=== PATIENT | male | born 1980 | race Caucasian/White ===

== ENCOUNTER 2016-05-30 06:25 | Day surgery (SDC) | payer OTHER ==
[2016-05-28 16:06] VITALS: BMI 31.0
[~2016-05-30 06:25] MED LIST: HEPARIN SODIUM,PORCINE 5,000 UNIT/ML 1 ML VIAL SQ ONE; ceFAZolin 2 GM in SODIUM CHLORIDE 0.9% 100 ML IVPB ONE
[2016-05-30] MEDS ORDERED: MIDAZOLAM 2 MG/2 ML VIAL IV PRN (06:37)
[2016-05-30] MEDS ORDERED: DEXAMETHASONE SOD PHOSPHATE 10 MG/ML 1 ML VIAL IV ONE (06:37)
[2016-05-30] MEDS ORDERED: SCOPOLAMINE 1.5MG/72HR PATCH TRANSDERM ONE (06:37)
[2016-05-30] MEDS ORDERED: ONDANSETRON 4 MG/2 ML VIAL IVP ONE (06:37)
[2016-05-30] MEDS ORDERED: LACTATED RINGERS 1,000 ML IV SCH (06:37)
[2016-05-30] MEDS ORDERED: LIDOCAINE 1% 20 ML VIAL (10MG/ML) FOR IV START INTRADERMA ONE (06:53)
--- NOTE | 2016-05-30 07:44 | P.GSHP ---
History of Present Illness H&P Date: 05/30/16 Chief Complaint: Right upper quadrant pain This is a 36-year-old male referred from Dr. Glenis Dumont. Patient rents today for laparoscopic cholecystectomy. Patient had complaints of her quadrant pain. His recent HIDA scan shows decreased ejection fraction consistent with biliary dyskinesia and chronic cholecystitis Past Medical History Past Medical History: Thyroid Disorder Additional Past Medical History / Comment(s): slight hiatal hernia, graves disease History of Any Multi-Drug Resistant Organisms: MRSA Date of last positivie culture/infection: 07/2011 MDRO Source:: LEFT KNEE Past Surgical History: Appendectomy, Orthopedic Surgery Additional Past Surgical History / Comment(s): left knee surgery, rt shoulder rotator cuff, nasal surgery Past Anesthesia/Blood Transfusion Reactions: Previous Problems w/ Anesthesia Additional Past Anesthesia/Blood Transfusion Reaction / Comment(s): HAD A REACTION TO SUCCINYCHOLINE POST OP NASAL SX FOR BROKEN NOSE THAT "BODY DID NOT PROCESS IT AND WAS ON BREATHING MACHINE FOR SEVERAL HOURS AFTERWARD" Past Psychological History: No Psychological Hx Reported Smoking Status: Former smoker Past Alcohol Use History: None Reported Additional Past Alcohol Use History / Comment(s): quit smoking 2007. smoked for 10 yrs, 1PPD Past Drug Use History: None Reported - Past Family History Mother Family Medical History: No Reported History Medications and Allergies Home Medications Medication Instructions Recorded Confirmed Type Hydrocodone/Acetaminophen [[place] 1 tab PO DIRECTED PRN 03/21/14 05/30/16 History 5-325] Methimazole [Tapazole] 2.5 mg PO DAILY 04/23/16 05/30/16 History Omeprazole 20 mg PO DAILY 05/28/16 05/30/16 History Vitamin B Complex 1 each PO DAILY 05/28/16 05/30/16 History Allergies Allergy/AdvReac Type Severity Reaction Status Date / Time succinylcholine Allergy Anaphylaxis Verified 05/28/16 15:58 Surgical - Exam Vital Signs Temp Pulse Resp BP Pulse Ox 97.9 F 68 16 128/78 97 05/30/16 07:05 05/30/16 07:05 05/30/16 07:05 05/30/16 07:05 05/30/16 07:05 - General well developed, no distress - Eyes PERRL - ENT normal pinna - Neck no masses - Respiratory normal expansion - Cardiovascular Rhythm: regular - Abdomen Abdomen: soft, non tender Assessment and Plan Plan: Chronic cholecystitis Biliary dyskinesia We will perform laparoscopic cholecystectomy
[2016-05-30] MEDS ORDERED: MIDAZOLAM 2 MG/2 ML VIAL ONE (07:50)
[2016-05-30] MEDS ORDERED: KETOROLAC 30 MG/ML 1 ML VIAL ONE (07:50)
[2016-05-30] MEDS ORDERED: NEOSTIGMINE 1 MG/ML 10 ML VIAL ONE (07:50)
[2016-05-30] MEDS ORDERED: GLYCOPYRROLATE 0.2 MG/ML 2 ML VIAL ONE (07:50)
[2016-05-30] MEDS ORDERED: LIDOCAINE 1% INJ 10MG/ML (20 ML MDV) ONE (07:50)
[2016-05-30] MEDS ORDERED: ROCURONIUM BROMIDE 10 MG/ML 10 ML VIAL IV ONE (07:50)
[2016-05-30] MEDS ORDERED: HYDROmorphone (PF) 1 MG/ML ONE (07:50)
[2016-05-30] MEDS ORDERED: fentaNYL (PF) 50 MCG/ML 2 ML AMP ONE (07:50)
[2016-05-30] MEDS ORDERED: PROPOFOL 10 MG/ML 20 ML VIAL IV ONE (07:50)
[2016-05-30] MEDS ORDERED: BUPIVACAIN-EPI 0.25%-1:200,000 30 ML VIAL IJ ONE (08:08)
[2016-05-30] MEDS ORDERED: LACTATED RINGERS 1,000 ML IV ONE (08:21)
--- NOTE | 2016-05-30 08:27 | P.OP ---
Date of Procedure: 05/30/16 Preoperative Diagnosis: Cholecystitis Postoperative Diagnosis: Cholecystitis Procedure(s) Performed: Laparoscopic cholecystectomy Anesthesia: RUFINO Surgeon: Mikey Dunne Estimated Blood Loss (ml): 5 Pathology: other (Gallbladder) Condition: stable Disposition: PACU Description of Procedure: The patient was placed on the operating table. The patient received a general endotracheal tube anesthesia. The patients abdomen was prepped and draped in the usual sterile fashion. Through an infraumbilical stab incision, the fascia of the anterior abdominal wall was grasped with a pair of Kochers and then the Veress needle was placed in the peritoneal cavity. Position of the Veress needle was confirmed with positive drop test. The abdomen was then insufflated. After adequate insufflation, the 10 mm trocar was placed in the peritoneal cavity. Following this the laparoscope was placed in the peritoneal cavity. The patient was placed in the head-up, right side up position and then a 5 mm trocar was placed in the right lateral and right subcostal position under direct visualization. A 8 mm trocar was placed in the epigastric position. The gallbladder was grasped in the fundus and infundibulum. Traction on the gallbladder was placed in the lateral and the cephalad positions. The triangle of Calot was visualized.. The cystic duct was bluntly dissected until the union of the cystic duct and common bile duct was seen. The cystic duct was then divided and sealed with the Harmonic scissors. A PDS Endoloop was then placed throughout the cystic duct stump. The cystic artery divided and sealed with the Harmonic scissors. The gallbladder was then removed from the liver bed using Harmonic scissors. The gallbladder was then extracted through the epigastric port site. Operative field was checked for any bleeding spots and Harmonic scissors was used to coagulate the liver bed. The abdomen was irrigated. The trocars were removed. The skin was closed using interrupted 3-0 Vicryl suture. Dermabond dressing were applied. The patient tolerated the procedure well.
[2016-05-30 08:43] VITALS: TEMP 97.2
[2016-05-30] MEDS: HYDROmorphone 1 MG/ML 1 ML SYRINGE IVP PRN ×5 (09:00→09:30)
[2016-05-30 09:52] VITALS: RESP 16
[2016-05-30 10:18] VITALS: PULSE 80
[2016-05-30 10:19] VITALS: BP 118/83
[2016-05-30] MEDS ORDERED: HYDROcodone/APAP 7.5-325MG 1 EACH TAB PO ONE (10:25)
== END 2016-05-30 10:54 | disposition home or self-care (01) ==
LOC: OR 06:25
PROVIDERS: ATTEND Surgery
DX: K81.1 Chronic cholecystitis (principal); E05.00 Thyrotoxicosis with diffuse goiter without thyrotoxic crisis or storm; K21.9 Gastro-esophageal reflux disease without esophagitis; Z87.891 Personal history of nicotine dependence; Z79.1 Long term (current) use of non-steroidal anti-inflammatories (NSAID); Z79.899 Other long term (current) drug therapy; Z88.8 Allergy status to other drugs, medicaments and biological substances
CPT/HCPCS: 88304; 47562; J2250; J1100; J2405; J2001; J1644; J3010; J2710; J0690; J1885; J1170; J2704

== ENCOUNTER → 2017-05-12 | Outpatient (CLI) | payer OTHER ==
--- NOTE | 2017-05-12 10:13 | CT ---
EXAMINATION TYPE: CT sinus wo con DATE OF EXAM: 05/12/2017 COMPARISON: NONE HISTORY: Chronic sinusitis CT DLP: 679 mGycm CONTRAST: None The paranasal sinuses are examined in the axial plane at 2 mm thick sections. Reconstructed images i n the coronal plane were obtained. There is an air-fluid level within the bilateral maxillary sinuses. Correlate for acute maxillary sin usitis. The ethmoid air cells are clear. The sphenoid sinuses are clear. The frontal sinuses are clear. Ri ght frontal sinus is aplastic. The septum is evaluated. There is septal deviation to the left. The ostiomeatal units are partially but incompletely obstructed. IMPRESSIONS: 1. Clinical correlation recommended for acute bilateral maxillary sinusitis.
== END | disposition home or self-care (01) ==
LOC: RADCTMAIN 08:35
PROVIDERS: ATTEND Otolaryngology
DX: J32.9 Chronic sinusitis, unspecified (principal)
CPT/HCPCS: 70486

== ENCOUNTER → 2019-12-05 | Outpatient (CLI) | payer OTHER ==
--- NOTE | 2019-12-06 06:07 | CT ---
EXAMINATION TYPE: CT brain wo con DATE OF EXAM: 12/05/2019 COMPARISON: HISTORY: Pt c/o headache x6 days, originating above RT eye, traveling back to neck. CT DLP: 1126.5 mGycm. Automated Exposure Control for Dose Reduction was Utilized. TECHNIQUE: CT scan of the head is performed without contrast. FINDINGS: There is no acute intracranial hemorrhage, mass effect, or midline shift identified. The ventricles and sulci are within normal limits in size. Mckenzie-white matter differentiation is maintai domitila. The globes are intact and the visualized sinuses are clear. IMPRESSION: No acute intracranial hemorrhage or midline shift is seen.
== END | disposition home or self-care (01) ==
LOC: RADCTMAIN 11:02
PROVIDERS: ATTEND Family Medicine
DX: R51 Headache (principal)
CPT/HCPCS: 70450

== ENCOUNTER → 2020-02-16 | Outpatient (CLI) | payer OTHER ==
--- NOTE | 2020-02-16 09:34 | MR ---
EXAMINATION TYPE: MR knee LT wo con DATE OF EXAM: 02/16/2020 COMPARISON: X-ray 01/24/2020 HISTORY: L knee pain TECHNIQUE: Multiplanar, multisequence imaging of the left knee is performed without IV contrast. FINDINGS: Anterior cruciate and posterior cruciate ligaments are intact. Medial collateral and lateral collater al ligament. There is a 1.5 x 1.5 x 3.5 cm popliteal fossa cyst. No significant marrow edema or contusion. Joint spaces are preserved. No erosive changes. Lateral meniscus intact. There is peripheral signal within the posterior horn of the medial meniscus. There is fibrillation of the patellar cartilage. Patellar and quadriceps tendons intact. No sizable f luid within the suprapatellar bursa. IMPRESSION: 1. No evidence of ligamentous tear. Peripheral signal within the posterior horn of the medial meniscu s may be related to myxoid degeneration. Subtle tear not entirely excluded. 2. Popliteal fossa cyst measuring 1.5 x 1.5 x 3.5 cm 3. Fibrillation and chondromalacia patellar cartilage
== END | disposition home or self-care (01) ==
LOC: RADMRIMAIN 08:04
PROVIDERS: ATTEND Orthopaedic Surgery
DX: M22.42 Chondromalacia patellae, left knee (principal)

== ENCOUNTER → 2020-03-05 | Outpatient (CLI) | payer OTHER | END | disposition home or self-care (01) | LOC: LABWHC1 11:37 | PROVIDERS: ATTEND Family Medicine | DX: Z20.828 Contact with and (suspected) exposure to other viral communicable diseases (principal) | CPT/HCPCS: U0003; C9803 ==

== ENCOUNTER → 2020-04-06 | Outpatient (CLI) | payer OTHER ==
[2020-04-06 15:46] LABS: Basophils # (A) 0.1 k/uL (0-0.2); Basophils % (A) 1 %; Eosinophils # (A) 0.2 k/uL (0-0.7); Eosinophils % (A) 3 %; HCT 44.1 % (39.0-53.0); Lymphocytes # (A) 4.1 k/uL (1.0-4.8); Lymphocytes % (A) 53 %; MCH 29.9 pg (25.0-35.0); MCHC 33.9 g/dL (31.0-37.0); MCV 88.4 fL (80.0-100.0); Mean Platelet Volume 6.7; Monocytes # (A) 0.5 k/uL (0-1.0); Monocytes % (A) 6 %; Neutrophils # (A) 2.8 k/uL (1.3-7.7); Neutrophils % (A) 35 %; Platelet Count 275 k/uL (150-450); RBC 4.99 m/uL (4.30-5.90); RDW 11.8 % (11.5-15.5); WBC 7.8 k/uL (3.8-10.6)
[2020-04-06 16:05] LABS: Potassium 3.7 mmol/L (3.5-5.1)
== END | disposition home or self-care (01) ==
LOC: LABPAT 15:12
PROVIDERS: ATTEND Orthopaedic Surgery
DX: Z01.818 Encounter for other preprocedural examination (principal); M23.92 Unspecified internal derangement of left knee
CPT/HCPCS: 36415; 80051; 85025

== ENCOUNTER 2020-04-19 11:50 | Day surgery (SDC) | payer OTHER ==
[2020-04-16 12:09] VITALS: BMI 31.7
--- NOTE | 2020-04-18 18:49 | HP ---
HISTORY AND PHYSICAL REASON FOR ADMISSION: Surgery scheduled for 04/19/2020 HISTORY OF PRESENT ILLNESS: Jasvir Rodriguez is a 39-year-old gentleman seen with progressive left knee pain. We discussed options for treatment. He elected to proceed with arthroscopy. Consent was obtained. PAST MEDICAL HISTORY: Hypothyroidism. PAST SURGICAL HISTORY: Left knee surgery. MEDICATIONS: Synthroid. ALLERGIES: SUCCINYLCHOLINE. SOCIAL HISTORY: He denies current tobacco use. PHYSICAL EXAMINATION: Evaluation of the left knee: Range of motion 0-130. There is a mild to moderate effusion. Tenderness medial joint line. Positive medial Kadeem's. Ligaments stable. Hip rotation without pain. Distal neurovascular exam intact. RADIOGRAPHS: Left knee radiographs revealed mild osteoarthritis. Left knee MRI: Medial meniscal tear and Gonsalez cyst. IMPRESSION: 1. Internal derangement left knee with medial meniscal tear. 2. Hypothyroidism. PLAN: Left knee arthroscopy with partial meniscectomy, partial synovectomy and debridement. Surgery is 04/19/2020. MMODL / IJN: [id number] /
[~2020-04-19 11:50] MED LIST changes: +DEXAMETHASONE SOD PHOSPHATE 4 MG/ML 1 ML VIAL IV ONE; -HEPARIN SODIUM,PORCINE 5,000 UNIT/ML 1 ML VIAL SQ ONE; +HYDROmorphone 0.5 MG/0.5 ML SYRINGE IVP PRN; +LACTATED RINGERS 1,000 ML IV SCH; +MIDAZOLAM 2 MG/2 ML VIAL IV PRN; +ONDANSETRON 4 MG/2 ML VIAL IVP ONE; +SCOPOLAMINE 1.5MG/72HR PATCH TRANSDERM ONE; -ceFAZolin 2 GM in SODIUM CHLORIDE 0.9% 100 ML IVPB ONE
[2020-04-19] MEDS ORDERED: NEOSTIGMINE 1 MG/ML 10 ML VIAL ONE (13:58)
[2020-04-19] MEDS ORDERED: GLYCOPYRROLATE 0.2 MG/ML 2 ML VIAL ONE (13:58)
[2020-04-19] MEDS ORDERED: fentaNYL (PF) 50 MCG/ML 2 ML AMP ONE (13:58)
[2020-04-19] MEDS ORDERED: PROPOFOL 10 MG/ML 20 ML VIAL IV ONE (13:58)
[2020-04-19] MEDS ORDERED: ROCURONIUM 10 MG/ML (10 ML VIAL) IV ONE (13:58)
[2020-04-19] MEDS ORDERED: MIDAZOLAM 2 MG/2 ML VIAL ONE (13:58)
[2020-04-19] MEDS ORDERED: LIDOCAINE 1% INJ 10MG/ML (20 ML MDV) ONE (13:58)
[2020-04-19] MEDS ORDERED: BUPIVACAINE (PF) 0.25% 30 ML VIAL SQ ONE ×2 (14:17→14:29)
--- NOTE | 2020-04-19 14:47 | P.OP ---
Date of Procedure: 04/19/20 Preoperative Diagnosis: Internal derangement left knee Postoperative Diagnosis: 1. Tear medial meniscus left knee 2. Grade 2 chondromalacia medial femoral condyle left knee 3. Reactive synovitis medial, lateral and suprapatellar compartments left knee Procedure(s) Performed: 1. Arthroscopic partial medial meniscectomy left knee 2. Arthroscopic chondroplasty medial femoral condyle left knee 3. Arthroscopic partial synovectomy medial, lateral and suprapatellar compartments left knee Anesthesia: CYRUSA, local Surgeon: Alex Arellano Estimated Blood Loss (ml): 8 Pathology: none sent Condition: stable Disposition: PACU Indications for Procedure: 39-year-old gentleman seen with progressive left knee pain. After treatment options were discussed, he elected to proceed with arthroscopy. Operative Findings: see description of procedure Description of Procedure: Patient was taken to the operative suite. Patient underwent a general anesthetic by the department of anesthesia. Patient was given preoperative antibiotics. The left lower extremity was placed in a well-padded arthroscopic leg kasper. The left leg was prepped and draped in the normal sterile orthopedic fashion. A lateral parapatellar and suprapatellar incision was made. Trochars were inserted. Arthroscopy was initiated. Suprapatellar pouch revealed diffuse thick reactive synovitis. The patellofemoral joint appeared to articulate congruently. There was grade 1 chondromalacia of the patella with no osteochondral tears present. The scope was guided into the medial gutter. No loose bodies or plica were identified. The scope was then guided into the medial compartment. A medial parapatellar incision was made. Trocar inserted followed by probe. There was a radial tear posterior horn medial meniscus. There were grade 2 chondral malacia changes of the medial femoral condyle with some osteochondral flap tears present. There was thick reactive synovitis anteriorly. I performed a partial medial meniscectomy getting down to stable meniscal tissue. I performed a chondroplasty medial femoral condyle getting down to stable tissue. I performed a partial synovectomy decompressing the reactive synovitis. The residual meniscus was stable. There was good decompression of the reactive synovitis. The residual osteochondral surface was stable. Scope and probe were then guided into the intercondylar notch. Cruciates were identified, probed and found to be stable. The scope and probe were then guided into lateral compartment. Lateral meniscus was probed and found to be stable. There was no significant chondromalacia. There was some reactive synovitis anteriorly. I performed a partial synovectomy decompressing the reactive synovitis. Shaver was removed. There was good decompression of the synovitis. The scope was in guided back into the suprapatellar compartment. Introduced a shaver into the superpatellar compartment. I debrided some piecemeal fragments of meniscus I encountered. I performed a partial syn ovectomy. Shaver was removed. There was good decompression of the synovitis. I took one more look on the entire knee, no residual debris. Instruments were now removed from the joint. The joint was infiltrated with .25% Marcaine. Steri-Strips were applied to the portal sites. Sterile dressings were applied. The patient was placed into a CARTER hose. No tourniquet was utilized. The patient was awakened, transferred to a bed and taken to recovery stable satisfactory condition.
[2020-04-19] MEDS ORDERED: HYDROmorphone 0.5 MG/0.5 ML SYRINGE IVP ONE ×3 (14:55→15:17)
[2020-04-19] MEDS ORDERED: KETOROLAC 15 MG/ML 1 ML VIAL IVP ONE (14:58)
[2020-04-19] MEDS ORDERED: LACTATED RINGERS 1,000 ML IV ONE (15:00)
[2020-04-19 15:02] VITALS: TEMP 97
[2020-04-19 17:20] VITALS: BP 134/74; PULSE 99; RESP 20
== END 2020-04-19 17:23 | disposition home or self-care (01) ==
LOC: OR 11:50
PROVIDERS: ATTEND Orthopaedic Surgery
DX: M23.222 Derangement of posterior horn of medial meniscus due to old tear or injury, left knee (principal); M94.262 Chondromalacia, left knee; M65.862 Other synovitis and tenosynovitis, left lower leg; M17.12 Unilateral primary osteoarthritis, left knee; M22.42 Chondromalacia patellae, left knee; E03.9 Hypothyroidism, unspecified; E05.00 Thyrotoxicosis with diffuse goiter without thyrotoxic crisis or storm; K75.9 Inflammatory liver disease, unspecified; K21.9 Gastro-esophageal reflux disease without esophagitis; E88.09 Other disorders of plasma-protein metabolism, not elsewhere classified; Z98.890 Other specified postprocedural states; Z79.890 Hormone replacement therapy; Z88.8 Allergy status to other drugs, medicaments and biological substances; Z79.899 Other long term (current) drug therapy
CPT/HCPCS: 29881; J2250; J1100; J2710; J0690; J2405; J2001; J3010; J1885; J2704; J1170

== ENCOUNTER → 2020-07-23 | Outpatient (CLI) | payer OTHER | END | disposition home or self-care (01) | LOC: LABWHC1 16:17 | PROVIDERS: ATTEND Family Medicine | DX: Z20.822 Contact with and (suspected) exposure to COVID-19 (principal) | CPT/HCPCS: U0003; U0005 ==

== ENCOUNTER 2020-07-28 09:44 | Emergency (ER) | payer OTHER ==
--- NOTE | 2020-07-28 10:50 | XR ---
EXAMINATION TYPE: XR chest 1V DATE OF EXAM: 07/28/2020 COMPARISON: 08/24/2011 HISTORY: Chest pain and shortness of breath TECHNIQUE: The lungs are clear consolidative, interstitial masslike opacity. There is no pleural effusion, pleural thickening or vasculature, mediastinum are normal. The osseous structures and soft tissues are unremarkable. IMPRESSION: No acute cardiopulmonary disease.
--- NOTE | 2020-07-28 11:09 | ED ---
General Adult HPI - General Chief complaint: Chest Pain Stated complaint: Chest Discomfort Time Seen by Provider: 07/28/20 10:01 Source: patient Mode of arrival: ambulatory Limitations: no limitations - History of Present Illness Initial comments: 40-year-old male patient presents to the emergency department today for evaluation of chest pain or shortness of breath. Patient states he was diagnosed with coated on 07/18/2020. States that he had cough, fever, nausea. States that most symptoms have resolved however he has persistent chest discomfort and shortness of breath. He has a history of Graves' disease denies any chronic lung conditions. States he has been taking [id number] vitamins and cold relief medications. He denies any sputum production or hemoptysis. Denies extremity swelling. Patient denies any recent rash, abdominal pain, nausea, vomiting, diarrhea, constipation, back pain, numbness, tingling, dizziness, weakness, hematuria, dysuria, urinary urgency, urinary frequency, headache, visual changes, or any other complaints. - Related Data Home Medications Medication Instructions Recorded Confirmed Ascorbic Acid [Vitamin C] 1,000 mg PO DAILY 07/28/20 07/28/20 Cholecalciferol [Vitamin D3 (25 25 mcg PO DAILY 07/28/20 07/28/20 Mcg = 1000 Iu)] Dm/Acetaminophen/Doxylamine [Vicks 30 ml PO Q6H PRN 07/28/20 07/28/20 Nyquil Cold-Flu Liquid] Hydrocodone/Acetaminophen [[place] 1 tab PO QID PRN 07/28/20 07/28/20 7.5-325] Levofloxacin [Levaquin] 500 mg PO DAILY 07/28/20 07/28/20 Levothyroxine Sodium [Synthroid] 25 mcg PO DAILY 07/28/20 07/28/20 Naproxen Sodium/Pseudoephedrin 1 tab PO Q12HR PRN 07/28/20 07/28/20 [Aleve-D Sinus & Cold Caplet] Phenylephrine/Dm/Acetaminop/GG 30 ml PO Q6H PRN 07/28/20 07/28/20 [Vicks Dayquil Severe Cold-Flu] Selenium 100 mcg PO DAILY 07/28/20 07/28/20 Previous Rx's Medication Instructions Recorded predniSONE 50 mg PO DAILY #5 tablet 07/28/20 Allergies Allergy/AdvReac Type Severity Reaction Status Date / Time succinylcholine Allergy Anaphylaxis Verified 07/28/20 09:58 Review of Systems ROS Statement: Those systems with pertinent positive or pertinent negative responses have been documented in the HPI. ROS Other: All systems not noted in ROS Statement are negative. Past Medical History Past Medical History: Thyroid Disorder Additional Past Medical History / Comment(s): slight hiatal hernia, graves disease History of Any Multi-Drug Resistant Organisms: MRSA Date of last positivie culture/infection: 07/2011 MDRO Source:: LEFT KNEE Past Surgical History: Appendectomy, Cholecystectomy, Orthopedic Surgery Additional Past Surgical History / Comment(s): left knee surgery, rt shoulder rotator cuff, nasal surgery Past Anesthesia/Blood Transfusion Reactions: Previous Problems w/ Anesthesia Additional Past Anesthesia/Blood Transfusion Reaction / Comment(s): HAD A REACTION TO SUCCINYCHOLINE POST OP NASAL SX FOR BROKEN NOSE THAT "BODY DID NOT PROCESS IT AND WAS ON BREATHING MACHINE FOR SEVERAL HOURS AFTERWARD" Past Psychological History: No Psychological Hx Reported Smoking Status: Never smoker Past Alcohol Use History: None Reported Past Drug Use History: None Reported - Past Family History Mother Family Medical History: No Reported History General Exam Limitations: no limitations General appearance: alert, in no apparent distress, other (This is a well developed, well nourished, adult male patient in no acute distress. Vital signs upon presentation are temperature 98.3, pulse 86, resp 18, BP 124/81, Pulse ox 98% on room air ) Eye exam: Present: normal appearance, PERRL, EOMI. Absent: scleral icterus, conjunctival injection, periorbital swelling ENT exam: Present: normal exam, normal oropharynx, mucous membranes moist, TM's normal bilaterally Neck exam: Present: normal inspection. Absent: tenderness, meningismus, lym phadenopathy Respiratory exam: Present: normal lung sounds bilaterally. Absent: respiratory distress, wheezes, rales, rhonchi, stridor Cardiovascular Exam: Present: regular rate, normal rhythm, normal heart sounds. Absent: systolic murmur, diastolic murmur, rubs, gallop, clicks GI/Abdominal exam: Present: soft, normal bowel sounds. Absent: distended, tenderness, guarding, rebound, rigid Neurological exam: Present: alert, oriented X3, CN II-XII intact Psychiatric exam: Present: normal affect, normal mood Skin exam: Present: warm, dry, intact, normal color. Absent: rash Course Vital Signs 07/28/20 09:54 Temperature 98.3 F Pulse Rate 86 Respiratory 18 Rate Blood Pressure 124/81 O2 Sat by Pulse 98 Oximetry EKG Findings - EKG Comments: EKG Findings:: EKG obtained at 1007 shows normal sinus rhythm with a ventricular rate of 78, MI interval 182, QRS duration 84, QT 382, QTc 435. No evidence of ST elevation or depression. Medical Decision Making - Medical Decision Making 40-year-old male patient presented to the emergency department today for evaluation of chest pain and shortness of breath. Diagnosed with COVID-19 about 10 days ago. Physical examination is unremarkable, lungs are clear to auscultation with good air movement. Vital signs are within normal ranges, oxygen saturation between 9899%. EKG showed sinus rhythm with no changes. Chest x-ray was obtained was negative. Did start prednisone. He'll be discharged to follow-up with his primary care physician for recheck in 1-2 days. Return parameters were discussed in detail. Case discussed with my attending Dr. Sotelo. - Radiology Data Radiology results: report reviewed, image reviewed 1V chest xray was obtained. Report was reviewed in its entirety. Impression by Dr. Gutierrez shows no acute cardio pulmonary disease. Disposition Clinical Impression: COVID-19 Disposition: HOME SELF-CARE Condition: Good Instructions (If sedation given, give patient instructions): Coronavirus Disease 2019 (COVID-19), Chest Pain (ED) Additional Instructions: Take medications as directed. Follow-up with your primary care physician for recheck in 1-2 days. Return to the emergency department for any new, worsening, or concerning symptoms. Prescriptions: predniSONE 50 mg PO DAILY #5 tablet Is patient prescribed a controlled substance at d/c from ED?: No Referrals: Lobo Dumont MD [Primary Care Provider] - 1-2 days Time of Disposition: 11:15
[2020-07-28] MEDS ORDERED: predniSONE 50 MG TAB PO STA (11:14)
[2020-07-28 11:26] VITALS: BP 128/78; PULSE 68; RESP 16; TEMP 98
== END 2020-07-28 11:25 | disposition home or self-care (01) ==
LOC: EC 09:44
DX: U07.1 COVID-19 (principal); R50.9 Fever, unspecified; R11.0 Nausea; R07.89 Other chest pain; E05.00 Thyrotoxicosis with diffuse goiter without thyrotoxic crisis or storm; Z79.899 Other long term (current) drug therapy; Z79.891 Long term (current) use of opiate analgesic; Z79.890 Hormone replacement therapy; Z79.1 Long term (current) use of non-steroidal anti-inflammatories (NSAID); Z79.52 Long term (current) use of systemic steroids; Z88.2 Allergy status to sulfonamides; Z90.49 Acquired absence of other specified parts of digestive tract; Z86.14 Personal history of Methicillin resistant Staphylococcus aureus infection
CPT/HCPCS: 93005; 71045; J7512; 99285

== ENCOUNTER 2020-10-19 08:51 | Inpatient (IN) | payer OTHER ==
[2020-10-19] MEDS ORDERED: KETOROLAC 15 MG/ML 1 ML VIAL IVP STA (09:18)
--- NOTE | 2020-10-19 09:49 | ED ---
Lower Extremity Injury HPI - General Chief Complaint: Extremity Injury, Lower Stated Complaint: R calf pain Time Seen by Provider: 10/19/20 08:58 Source: patient, RN notes reviewed Mode of arrival: ambulatory Limitations: no limitations - History of Present Illness Initial Comments: This a 40-year-old male presents emergency Department with chief complaint of right calf pain. Patient states this started as she went off work has worsened. He states his leg is swollen. He states he's also had a fever at home, feeling flushed out felt well. Patient's had some urinary frequency increased thirst. Patient states that it's he did have cold in July. Patient states he has no cough congestion shortness of breath no chest pain no abdominal complaints. No history DVT or PE - Related Data Home Medications Medication Instructions Recorded Confirmed Hydrocodone/Acetaminophen [[place] 1 tab PO QID PRN 07/28/20 10/19/20 7.5-325] Levothyroxine Sodium [Synthroid] 50 mcg PO DAILY 10/19/20 10/19/20 Allergies Allergy/AdvReac Type Severity Reaction Status Date / Time succinylcholine Allergy Anaphylaxis Verified 10/19/20 11:12 Review of Systems ROS Statement: Those systems with pertinent positive or pertinent negative responses have been documented in the HPI. ROS Other: All systems not noted in ROS Statement are negative. Past Medical History Past Medical History: Thyroid Disorder Additional Past Medical History / Comment(s): slight hiatal hernia, graves disease History of Any Multi-Drug Resistant Organisms: MRSA Date of last positivie culture/infection: 07/2011 MDRO Source:: LEFT KNEE Past Surgical History: Appendectomy, Cholecystectomy, Orthopedic Surgery Additional Past Surgical History / Comment(s): left knee surgery, rt shoulder rotator cuff, nasal surgery Past Anesthesia/Blood Transfusion Reactions: Previous Problems w/ Anesthesia Additional Past Anesthesia/Blood Transfusion Reaction / Comment(s): HAD A REACTION TO SUCCINYCHOLINE POST OP NASAL SX FOR BROKEN NOSE THAT "BODY DID NOT PROCESS IT AND WAS ON BREATHING MACHINE FOR SEVERAL HOURS AFTERWARD" Past Psychological History: No Psychological Hx Reported Smoking Status: Never smoker Past Alcohol Use History: None Reported Past Drug Use History: None Reported - Past Family History Mother Family Medical History: No Reported History General Exam Limitations: no limitations General appearance: alert, in no apparent distress Head exam: Present: atraumatic, normocephalic, normal inspection Neck exam: Present: normal inspection. Absent: tenderness, meningismus, lymphadenopathy Respiratory exam: Present: normal lung sounds bilaterally. Absent: respiratory distress, wheezes, rales, rhonchi, stridor Cardiovascular Exam: Present: regular rate, normal rhythm, normal heart sounds. Absent: systolic murmur, diastolic murmur, rubs, gallop, clicks GI/Abdominal exam: Present: soft, normal bowel sounds. Absent: distended, tenderness, guarding, rebound, rigid Extremities exam: Present: other (Right calf is swollen, tender no erythema pulses are palpable there is noted tinea pedis of the right foot) Back exam: Absent: CVA tenderness (R), CVA tenderness (L) Skin exam: Present: warm, dry, intact, normal color. Absent: rash Course Vital Signs 10/19/20 10/19/20 10/19/20 08:51 09:46 10:55 Temperature 98.4 F 100.0 F H 99 F Pulse Rate 106 H 101 H 98 Respiratory 18 20 16 Rate Blood Pressure 121/79 121/89 131/87 O2 Sat by Pulse 95 96 95 Oximetry 10/19/20 12:46 Temperature Pulse Rate 95 Respiratory 18 Rate Blood Pressure 125/80 O2 Sat by Pulse 97 Oximetry Medical Decision Making - Lab Data Result diagrams: 10/19/20 09:44 10/19/20 09:44 Lab Results 10/19/20 10/19/20 10/19/20 Range/Units 09:44 09:44 09:44 WBC 14.5 H (3.8-10.6) k/uL RBC 4.68 (4.30-5.90) m/uL Hgb 14.2 (13.0-17.5) gm/dL Hct 41.0 (39.0-53.0) % MCV 87.6 (80.0-100.0) fL MCH 30.3 (25.0-35.0) pg MCHC 34.7 (31.0-37.0) g/dL RDW 12.0 (11.5-15.5) % Plt Count 237 (150-450) k/uL MPV 7.0 Neutrophils % 78 % Lymphocytes % 16 % Monocytes % 4 % Eosinophils % 0 % Basophils % 0 % Neutrophils # 11.3 H (1.3-7.7) k/uL Lymphocytes # 2.3 (1.0-4.8) k/uL Monocytes # 0.6 (0-1.0) k/uL Eosinophils # 0.0 (0-0.7) k/uL Basophils # 0.1 (0-0.2) k/uL Sodium 140 (137-145) mmol/L Potassium 3.8 (3.5-5.1) mmol/L Chloride 104 (98-107) mmol/L Carbon Dioxide 29 (22-30) mmol/L Anion Gap 7 mmol/L BUN 14 (9-20) mg/dL Creatinine 0.99 (0.66-1.25) mg/dL Est GFR (CKD-EPI)AfAm >90 (>60 ml/min/1.73 sqM) Est GFR (CKD-EPI)NonAf >90 (>60 ml/min/1.73 sqM) Glucose 100 H (74-99) mg/dL Plasma Lactic Acid Jan 1.3 (0.7-2.0) mmol/L Calcium 9.4 (8.4-10.2) mg/dL Total Bilirubin 1.0 (0.2-1.3) mg/dL AST 27 (17-59) U/L ALT 30 (4-49) U/L Alkaline Phosphatase 69 (38-126) U/L Total Protein 7.3 (6.3-8.2) g/dL Albumin 4.5 (3.5-5.0) g/dL Urine Color Urine Appearance (Clear) Urine pH (5.0-8.0) Ur Specific [place] (1.001-1.035) Urine Protein (Negative) Urine Glucose (UA) (Negative) Urine Ketones (Negative) Urine Blood (Negative) Urine Nitrite (Negative) Urine Bilirubin (Negative) Urine Urobilinogen (<2.0) mg/dL Ur Leukocyte Esterase (Negative) 10/19/20 Range/Units 09:46 WBC (3.8-10.6) k/uL RBC (4.30-5.90) m/uL Hgb (13.0-17.5) gm/dL Hct (39.0-53.0) % MCV (80.0-100.0) fL MCH (25.0-35.0) pg MCHC (31.0-37.0) g/dL RDW (11.5-15.5) % Plt Count (150-450) k/uL MPV Neutrophils % % Lymphocytes % % Monocytes % % Eosinophils % % Basophils % % Neutrophils # (1.3-7.7) k/uL Lymphocytes # (1.0-4.8) k/uL Monocytes # (0-1.0) k/uL Eosinophils # (0-0.7) k/uL Basophils # (0-0.2) k/uL Sodium (137-145) mmol/L Potassium (3.5-5.1) mmol/L Chloride (98-107) mmol/L Carbon Dioxide (22-30) mmol/L Anion Gap mmol/L BUN (9-20) mg/dL Creatinine (0.66-1.25) mg/dL Est GFR (CKD-EPI)AfAm (>60 ml/min/1.73 sqM) Est GFR (CKD-EPI)NonAf (>60 ml/min/1.73 sqM) Glucose (74-99) mg/dL Plasma Lactic Acid Jan (0.7-2.0) mmol/L Calcium (8.4-10.2) mg/dL Total Bilirubin (0.2-1.3) mg/dL AST (17-59) U/L ALT (4-49) U/L Alkaline Phosphatase (38-126) U/L Total Protein (6.3-8.2) g/dL Albumin (3.5-5.0) g/dL Urine Color Light Yellow Urine Appearance Clear (Clear) Urine pH 6.5 (5.0-8.0) Ur Specific [place] 1.013 (1.001-1.035) Urine Protein Negative (Negative) Urine Glucose (UA) Negative (Negative) Urine Ketones Negative (Negative) Urine Blood Negative (Negative) Urine Nitrite Negative (Negative) Urine Bilirubin Negative (Negative) Urine Urobilinogen <2.0 (<2.0) mg/dL Ur Leukocyte Esterase Negative (Negative) Disposition Clinical Impression: Right leg pain, Myositis, Fever Disposition: ADMITTED IP TO THIS [facility] Referrals: Lobo Dumont MD [Primary Care Provider] - 1-2 days
[2020-10-19 10:00] LABS: Basophils # (A) 0.1 k/uL (0-0.2); Basophils % (A) 0 %; Eosinophils % (A) 0 %; HGB 14.2 gm/dL (13.0-17.5); Lymphocytes # (A) 2.3 k/uL (1.0-4.8); Lymphocytes % (A) 16 %; MCH 30.3 pg (25.0-35.0); MCHC 34.7 g/dL (31.0-37.0); MCV 87.6 fL (80.0-100.0); Monocytes # (A) 0.6 k/uL (0-1.0); Monocytes % (A) 4 %; Neutrophils # (A) 11.3 k/uL (1.3-7.7); Neutrophils % (A) 78 %; Platelet Count 237 k/uL (150-450); RBC 4.68 m/uL (4.30-5.90); WBC 14.5 k/uL (3.8-10.6)
[2020-10-19 10:01] LABS: Appearance,Urine Clear (Clear); Bilirubin,Urine Negative (Negative); Blood,Urine Negative (Negative); Color,Urine Light Yellow; Glucose,Urine (UA) Negative (Negative); Ketones,Urine Negative (Negative); Leukocyte Esterase,Urine Negative (Negative); Nitrite,Urine Negative (Negative); PH, Urine 6.5 (5.0-8.0); Protein,Urine Negative (Negative); Specific Gravity,Urine 1.013 (1.001-1.035); Urobilinogen,Urine <2.0 mg/dL (<2.0)
[2020-10-19 10:12] LABS: Potassium 3.8 mmol/L (3.5-5.1)
[2020-10-19 10:14] LABS: ALT 30 U/L (4-49); AST 27 U/L (17-59); African American GFR (CKD) >90 (>60 ml/min/1.73 sqM); Albumin 4.5 g/dL (3.5-5.0); Alkaline Phosphatase 69 U/L (38-126); Anion Gap 7 mmol/L; Blood Urea Nitrogen 14 mg/dL (9-20); Calcium 9.4 mg/dL (8.4-10.2); Carbon Dioxide 29 mmol/L (22-30); Chloride 104 mmol/L (98-107); Glucose 100 mg/dL (74-99); Non-African American GFR(CKD) >90 (>60 ml/min/1.73 sqM); Sodium 140 mmol/L (137-145); Total Protein 7.3 g/dL (6.3-8.2)
--- NOTE | 2020-10-19 11:26 | US ---
EXAMINATION TYPE: US venous doppler duplex LE RT DATE OF EXAM: 10/19/2020 10:09 AM COMPARISON: Bilateral US 12/30/2013. CLINICAL HISTORY: pain. pain in calf SIDE PERFORMED: Right TECHNIQUE: The lower extremity deep venous system is examined utilizing real time linear array sonog sylvia with graded compression, doppler sonography and color-flow sonography. VESSELS IMAGED: Common Femoral Vein Deep Femoral Vein Greater Saphenous Vein * Femoral Vein Popliteal Vein Small Saphenous Vein * Proximal Calf Veins (* superficial vessels) Right Leg: Negative for DVT Grayscale, color doppler, spectral doppler imaging performed of the deep veins of the right lower ext remity. There is normal flow, compressibility, vascular waveforms. IMPRESSION: No ultrasound evidence for acute DVT in the right lower extremity.
--- NOTE | 2020-10-19 11:38 | XR ---
EXAMINATION TYPE: XR chest 2V DATE OF EXAM: 10/19/2020 COMPARISON: Prior exam 07/28/2020 HISTORY: Fever, Covid positive, headache and swelling TECHNIQUE: Frontal and lateral views of the chest are obtained. FINDINGS: There is no focal air space opacity, pleural effusion, or pneumothorax seen. The cardiac silhouette size is within normal limits. The osseous structures are intact. IMPRESSION: No acute cardiopulmonary process.
--- NOTE | 2020-10-19 12:14 | XR ---
Right leg HISTORY: Pain and swelling Frontal and lateral views of the right leg submitted Enthesophyte present at the insertion of the Achilles tendon. There is arthropathy tibiotalar joint, marginal spurring and subchondral eburnation, cyst formation. Small ossific densities present at the level the medial malleolus appear well-corticated and not felt likely to be chronic. Soft tissue swel ling is noted incidentally. IMPRESSION: Osteoarthritic changes of the left ankle, there may be underlying osteochondral defect, l oose bodies versus avulsion injuries, ankle MRI may be of benefit. Correlate for edema or cellulitis within the right leg.
[2020-10-19] MEDS ORDERED: AMPICILLIN-SULBACTAM 3 GM in SODIUM CHLORIDE 0.9% 100 ML IVPB STA (12:52)
[2020-10-19] MEDS ORDERED: NALOXONE 0.4 MG/ML 1 ML VIAL IV PRN (12:53)
[2020-10-19] MEDS ORDERED: ONDANSETRON 4 MG/2 ML VIAL IVP PRN (12:53)
--- NOTE | 2020-10-19 15:45 | P.CNOR ---
History of Present Illness - [facility] Consult date: 10/19/20 Consult reason: other (Right calf pain) History of present illness: Patient is a 40-year-old male who presented to [facility] emergency room today with regards to pain and swelling of his right calf. Patient states he woke up yesterday afternoon with some discomfort in the right calf. 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 Patient works at a [employer] and is on his feet quite a bit. Patient denies any recent trauma, this including falls. He denies any skin scrapes or changes to the skin involving the right lower extremity. He does have a history of a left knee arthroscopy with Dr. Arellano in April 2020, the knee has been doing very well with no acute changes. Patient states he has felt a little sick the last few days, he was running a low-grade fever at home. He also states that he's been urinating slightly more than normal, he states he is also been drinking more fluid he feels she's been slightly dehydrated. Today in the ER, patient was evaluated at bedside, he is resting comfortably. His family with him at bedside. He notes most of discomfort in the posterior aspect of the right calf. He denies any foot or ankle, knee, hip pain. He denies any left lower extremity discomfort. He denies any cervical, thoracic or lumbar pain. He denies any loss of bowel or bladder function. Review of Systems Constitutional: Reports as per HPI Past Medical History Past Medical History: Thyroid Disorder Additional Past Medical History / Comment(s): slight hiatal hernia, graves disease History of Any Multi-Drug Resistant Organisms: MRSA Year Discovered:: 07/2011 MDRO Source:: LEFT KNEE Past Surgical History: Appendectomy, Cholecystectomy, Orthopedic Surgery Additional Past Surgical History / Comment(s): left knee surgery, rt shoulder rotator cuff, nasal surgery Past Anesthesia/Blood Transfusion Reactions: Previous Problems w/ Anesthesia Additional Past Anesthesia/Blood Transfusion Reaction / Comm: HAD A REACTION TO SUCCINYCHOLINE POST OP NASAL SX FOR BROKEN NOSE THAT "BODY DID NOT PROCESS IT AND WAS ON BREATHING MACHINE FOR SEVERAL HOURS AFTERWARD" Past Psychological History: No Psychological Hx Reported Smoking Status: Never smoker Past Alcohol Use History: None Reported Past Drug Use History: None Reported - Past Family History Mother Family Medical History: No Reported History Medications and Allergies Home Medications Medication Instructions Recorded Confirmed Type Hydrocodone/Acetaminophen [[place] 1 tab PO QID PRN 07/28/20 10/19/20 History 7.5-325] Levothyroxine Sodium [Synthroid] 50 mcg PO DAILY 10/19/20 10/19/20 History Allergies Allergy/AdvReac Type Severity Reaction Status Date / Time succinylcholine Allergy Anaphylaxis Verified 10/19/20 11:12 Physical Examination Right lower extremity: No obvious open skin lesions or sores are present throughout the extremity. Th ere is no obvious erythema. There is no obvious fluctuance appreciated especially surrounding the calf There is significant tenderness with palpation involving the posterior calf and the medial and lateral borders. The compartments are soft and compressible. There is no effusion present around the knee, there is no joint line tenderness with palpation Patient can fully extend the knee and flex past 90 and no pain Logroll maneuver of the leg reproduces no groin pain, hip flexion along with int ernal and external rotation reproduces no pain Homans test was difficult to assess due to the discomfort reproduced with range of motion of the foot and ankle Plantar flexion, dorsiflexion, EHL, FHL are intact Dorsalis pedis pulses 2+ Sensory exam to light touch throughout the extremity is intact Results - Labs Labs: Abnormal Lab Results - Last 24 Hours (Table) 10/19/20 10/19/20 10/19/20 Range/Units 09:44 09:44 13:20 WBC 14.5 H (3.8-10.6) k/uL Neutrophils # 11.3 H (1.3-7.7) k/uL Glucose 100 H (74-99) mg/dL Coronavirus (PCR) Detected A (Not Detectd) H & H 10/19/20 Range/Units 09:44 Hgb 14.2 (13.0-17.5) gm/dL Hct 41.0 (39.0-53.0) % Result Diagrams: 10/19/20 09:44 10/19/20 09:44 Assessment and Plan Assessment: Right calf pain Right calf swelling Positive Mitchell virus test Leukocytosis Plan: I was able to discuss the case, this to include physical exam findings and imaging studies maintaining Dr. Prather. No current clinical evidence of soft tissue infection or abscess. No orthopedic surgical intervention recommended at this time. Recommend icing and elevating of the right lower extremity. Weight-bear as tolerated Taking into consideration the patient's positive covid test, this may explain the leukocytosis Would recommend vascular consult for further evaluation and recommendations Other biomedical engineering internship and recommendations We will be available for any further questions regarding this patient Time with Patient: Less than 30
[2020-10-19 16:49] LABS: C Reactive Protein 5.7 mg/dL (<1.0)
[2020-10-19] MEDS: HYDROmorphone 0.5 MG/0.5 ML SYRINGE IVP PRN (19:32)
[2020-10-19] MEDS: AMPICILLIN-SULBACTAM 3 GM in SODIUM CHLORIDE 0.9% 100 ML IVPB SCH (21:17)
[2020-10-20] MEDS: HYDROmorphone 0.5 MG/0.5 ML SYRINGE IVP PRN ×5 (00:13→21:29)
[2020-10-20] MEDS: AMPICILLIN-SULBACTAM 3 GM in SODIUM CHLORIDE 0.9% 100 ML IVPB SCH ×2 (05:30→13:45)
[2020-10-20] MEDS: ACETAMINOPHEN TAB 325 MG TAB PO PRN ×3 (05:30→16:58)
--- NOTE | 2020-10-20 14:25 | P.HPIM ---
History of Present Illness 40-year-old male came in with recent onset of right calf pain started couple days ago woke up from sleep found to have swelling and severe pain in the right calf. Patient the is admitted for myositis. Patient was evaluated by arthritic surgery patient had several imaging studies including Doppler of the right lower extremity which did not show any significant abnormality or DVT patient does have fever. Patient is presently on Toradol and Unasyn. Patient denied any injury patient does have history of Graves' disease. Denied any family history of polymyositis or dermatomyositis patient denied any rash. Patient had a tibia and fibular x-ray which showed osteoarthritis of the right ankle. Patient Covid 19 PCR is positive. Patient was diagnosed with Covid 19 couple months ago and patient still has some nonviable RNA viral fragments. I do not have any CK available at this time which will be obtained. Patient may end up needing muscle biopsy vascular surgery will be consulted. Review of Systems REVIEW OF SYSTEMS: CONSTITUTIONAL: No fever, no malaise, no fatigue. HEENT: No recent visual problems or hearing problems. Denied any sore throat. CARDIOVASCULAR: No chest pain, orthopnea, PND, no palpitations, no syncope. PULMONARY: No shortness of breath, no cough, no hemoptysis. GASTROINTESTINAL: No diarrhea, no nausea, no vomiting, no abdominal pain. NEUROLOGICAL: No headaches, no weakness, no numbness. HEMATOLOGICAL: Denies any bleeding or petechiae. GENITOURINARY: Denies any burning micturition, frequency, or urgency. MUSCULOSKELETAL/RHEUMATOLOGICAL: As mentioned in HPI ENDOCRINE: Denies any polyuria or polydipsia. The rest of the 14-point review of systems is negative. Past Medical History Past Medical History: Thyroid Disorder Additional Past Medical History / Comment(s): slight hiatal hernia, graves disease History of Any Multi-Drug Resistant Organisms: MRSA Date of last positivie culture/infection: 07/2011 MDRO Source:: LEFT KNEE Past Surgical History: Appendectomy, Cholecystectomy, Orthopedic Surgery Additional Past Surgical History / Comment(s): 2 left knee surgery, rt shoulder rotator cuff, nasal surgery Past Anesthesia/Blood Transfusion Reactions: Previous Problems w/ Anesthesia Additional Past Anesthesia/Blood Transfusion Reaction / Comment(s): HAD A REACTION TO SUCCINYCHOLINE POST OP NASAL SX FOR BROKEN NOSE THAT "BODY DID NOT PROCESS IT AND WAS ON BREATHING MACHINE FOR SEVERAL HOURS AFTERWARD" Past Psychological History: No Psychological Hx Reported Smoking Status: Former smoker Past Alcohol Use History: None Reported Additional Past Alcohol Use History / Comment(s): quit smoking 2007. smoked for 10 yrs, 1PPD Past Drug Use History: None Reported - Past Family History Mother Family Medical History: No Reported History Medications and Allergies Home Medications Medication Instructions Recorded Confirmed Type Hydrocodone/Acetaminophen [[place] 1 tab PO QID PRN 07/28/20 10/19/20 History 7.5-325] Levothyroxine Sodium [Synthroid] 50 mcg PO DAILY 10/19/20 10/19/20 History Allergies Allergy/AdvReac Type Severity Reaction Status Date / Time succinylcholine Allergy Anaphylaxis Verified 10/19/20 11:12 Physical Exam Vitals: Vital Signs Temp Pulse Pulse Resp BP BP Pulse Ox 10/20/20 10:40 100.4 F H 99 18 113/73 94 L 10/20/20 08:00 99 18 10/20/20 05:42 101.5 F H 109 H 18 125/78 94 L 10/20/20 00:17 99.9 F H 103 H 22 121/74 93 L 10/19/20 20:00 22 10/19/20 18:36 100.0 F H 103 H 18 127/78 94 L 10/19/20 16:00 84 18 120/74 95 Intake and Output 10/19/20 10/20/20 10/20/20 22:59 06:59 14:59 Intake Total 200 Output Total 400 Balance -200 Intake: Intake, IV Titration 200 Amount Ampicillin-Sulbactam 3 gm 100 In Sodium Chloride 0.9% 100 ml @ 200 mls/hr IVPB ONCE [facility] Rx#:[id number] Ampicillin-Sulbactam 3 gm 100 In Sodium Chloride 0.9% 100 ml @ 200 mls/hr IVPB Q8H [facility] Rx#:[id number] Output: Urine 400 Other: Voiding Method Toilet Toilet Weight 97.522 kg PHYSICAL EXAMINATION: GENERAL: The patient is alert and oriented x3, not in any acute distress. Well developed, well nourished. HEENT: Pupils are round and equally reacting to light. EOMI. No scleral icterus. No conjunctival pallor. Normocephalic, atraumatic. No pharyngeal erythema. No thyromegaly. CARDIOVASCULAR: S1 and S2 present. No murmurs, rubs, or gallops. PULMONARY: Chest is clear to auscultation, no wheezing or crackles. ABDOMEN: Soft, nontender, nondistended, normoactive bowel sounds. No palpable organomegaly. MUSCULOSKELETAL: She has significant swelling in the right the calf tender to touch without any significant redness of skin. EXTREMITIES: No cyanosis, clubbing, or pedal edema. NEUROLOGICAL: Gross neurological examination did not reveal any focal deficits. SKIN: Mild redness secondary to myositis Results CBC & Chem 7: 10/19/20 09:44 10/19/20 09:44 Labs: Abnormal Lab Results - Last 24 Hours (Table) 10/19/20 Range/Units 09:44 Creatine Kinase 172 H (55-170) U/L C-Reactive Protein 5.7 H (<1.0) mg/dL Assessment and Plan Plan: -Severe myositis: Patient will be evaluated for infectious, inflammatory and autoimmune causes patient may end up needing muscle biopsy. Vascular surgery will be consulted for that we'll obtain a CPK level. We'll also obtain TSH -Covid 19 PCR positivity: Secondary to his recent Covid 19 infection patient doesn't appear to have active infection at this time. -Hypothyroidism, history of Graves' disease will obtain TSH continue with levothyroxine. Patient had history of radiation for Graves' disease -DVT prophylaxis Lovenox
[2020-10-20] MEDS: CLINDAMYCIN 900 MG in DEXTROSE 5% IN WATER 50 ML IVPB SCH ×2 (18:22)
--- NOTE | 2020-10-20 19:17 | CT ---
EXAMINATION TYPE: CT lower extremity RT w con DATE OF EXAM: 10/20/2020 COMPARISON: None HISTORY: Right sided pain and redness to calf. CT DLP: 205.7 mGycm Automated exposure control for dose reduction was used. CONTRAST: Performed with IV Contrast, patient injected with 100 mL of Isovue 300. Images were obtained from the distal femoral metaphysis to the bottom of the calcaneus with IV contra st. There is some mild subcutaneous edema over the posterior lower leg. There is fluid measuring up to 7 mm in thickness. I see no intramuscular fluid collection. The tibia and fibula appear intact. I see n o bony destructive process. There is no evidence of a fracture. Knee joint appears intact. There is n o significant knee joint effusion. Ankle mortise is anatomic. The talus is intact. I see no pathologi c enhancement. There is arterial flow seen in the popliteal artery and peroneal artery and the tibial artery trifurcation. There is arterial flow in the dorsalis pedis artery and the posterior tibial ar crow at the ankle. IMPRESSION: Subcutaneous edema and fluid over the posterior mid calf. This could relate to cellulitis. No evidenc e of arterial significant occlusive disease.
--- NOTE | 2020-10-20 20:38 | CONS ---
CONSULTATION DATE OF SERVICE: 10/20/2020 REASON FOR CONSULTATION: Right lower extremity cellulitis, question myositis. HISTORY OF PRESENT ILLNESS: The patient is a 40-year-old male presented to [facility] yesterday morning for evaluation of right calf pain. The patient's symptoms started Thursday night into morning when he was done with his shift. Started having pain to the right calf area, described the pain to be sharp in nature, almost 10/10 intensity. Initially, not as bad about 5 to 6/10. The patient's symptoms continued to get worse. He did go to work that evening. However, had to leave work early and presented to [facility] yesterday morning for evaluation of the right calf pain which is gaining in severity, describing to be almost 10 out of 10, throbbing in nature and worse with walking on it. The patient did notice he had associated swelling and redness of the right leg. He did develop athlete's foot prior to that to the right 4th toe web. With these symptoms, the patient was evaluated by the ER physician. On arrival to the ER, the patient did have a fever of initially afebrile, the temperature 98.4, subsequently spiked a fever of 101.5 degrees this morning. The patient did have white count 14.5 with left shift. Creatinine was 0.99. Urine is negative. Mitchell PCR came back positive. Chest x-ray was negative. The patient did have lower extremity Doppler that was negative for DVT. The patient treated with Unasyn and Infectious disease was consulted today for management of antibiotic therapy concerning for myositis/cellulitis. REVIEW OF SYSTEM: Positive points have been mentioned in HPI. Rest of systems are negative. PAST MEDICAL HISTORY: Hypothyroidism, hiatal hernia, Grave's disease, previous history of left knee MRSA infection. PAST SURGICAL HISTORY: Appendectomy, cholecystectomy, left knee surgery, right rotator cuff repair SOCIAL HISTORY: The patient denies smoking, drinking or drug use. FAMILY HISTORY: No pertinent findings noticed. ALLERGIES: TO SUCCINYLCHOLINE. MEDICATIONS: The patient is currently on Tylenol, Unasyn 3 grams q.6 hours, Lovenox, Dilaudid, Toradol, Synthroid, Narcan, Zofran. PHYSICAL EXAMINATION: Blood pressure is 115/77, pulse of 103, temperature is 100, T-max 101.5. He is 95% on room air. General description: The patient is a middle-aged male lying in bed in no distress. No tachypnea or accessory muscles of respiration use. HEENT: Examination shows no pallor or scleral icterus. Oral mucous membranes dry. NECK: Trachea central. No thyromegaly. LUNGS unlabored breathing. Clear to auscultation anteriorly with no wheeze or crackles. HEART S1, S2. Regular rate and rhythm. ABDOMEN: Soft, no tenderness. No guarding. No rigidity. Right lower extremity swollen, red especially the calf area. Slightly warm and tender to touch. No fluctuation induration or any drainage. Right foot 4th toe web did have evidence of athlete's foot. NEUROLOGICAL: Patient is awake, alert, oriented times three. Mood and affect normal. LABS: Hemoglobin is 14.1, white count 14.5. BUN of 14, creatinine 0.99. Electrolytes have been normal. Urine is negative. Chest x-ray was negative. Lower extremity Doppler was negative for DVT. DIAGNOSTIC IMPRESSION AND PLAN: Patient with admission to the hospital with sepsis, source is right lower extremity cellulitis, likely streptococcal disease in this patient who did have evidence of athlete's foot. Clinical suspicion low for underlying myositis or necrotizing infection. PLAN: 1. We will obtain a CT of the right leg to make sure no evidence of any deep infection, or an abscess. 2. Discontinue Unasyn. 3. Start the patient on cefazolin, Clinda combination. 4. Branden the circumference of the right leg and should be measured every few hours to make sure no evidence of any worsening swelling to the right leg. This was explained to the patient's nurse. 5. Nystatin cream in between the toes. 6. We will follow on his clinical condition and investigations to further adjust medication if needed. Thank you for this consultation. We will follow this patient along with you. The patient has multiple questions. Those were answered. MMODL / IJN: [id number] / LAKESHA
[2020-10-20] MEDS: NYSTATIN 100,000UNIT/GM CREAM 30 GM TUBE TOPICAL SCH (21:33)
[2020-10-21] MEDS: HYDROmorphone 0.5 MG/0.5 ML SYRINGE IVP PRN ×4 (00:35→19:31)
[2020-10-21] MEDS: KETOROLAC 15 MG/ML 1 ML VIAL IVP PRN ×2 (01:28→23:55)
[2020-10-21] MEDS: CLINDAMYCIN 900 MG in DEXTROSE 5% IN WATER 50 ML IVPB SCH ×6 (01:28→16:55)
[2020-10-21] MEDS: LEVOTHYROXINE 50 MCG TAB PO SCH (06:05)
[2020-10-21] MEDS: ACETAMINOPHEN TAB 325 MG TAB PO PRN ×3 (06:05→18:14)
[2020-10-21] MEDS: ENOXAPARIN 40 MG/0.4 ML SYRINGE SQ SCH (07:21)
--- NOTE | 2020-10-21 10:36 | P.PN ---
Subjective 40-year-old male came in with recent onset of right calf pain started couple days ago woke up from sleep found to have swelling and severe pain in the right calf. Patient the is admitted for myositis. Patient was evaluated by arthritic surgery patient had several imaging studies including Doppler of the right lower extremity which did not show any significant abnormality or DVT patient does have fever. Patient is presently on Toradol and Unasyn. Patient denied any injury patient does have history of Graves' disease. Denied any family history of polymyositis or dermatomyositis patient denied any rash. Patient had a tibia and fibular x-ray which showed osteoarthritis of the right ankle. Patient Covid 19 PCR is positive. Patient was diagnosed with Covid 19 couple months ago and patient still has some nonviable RNA viral fragments. 10/21/2020 Patient was a evaluated by infectious disease patient does have fungal infection in between fourth and fifth fingers which is probably a nidus of infection patient probably has streptococcal infection. Patient is presently on cefazolin and also on clindamycin. Patient still had fevers. Constitutional: Denied any fatigue denied any fever. Cardio vascular: denied any chest pain, palpitations Gastrointestinal denied any nausea vomiting Pulmonary: Denied any shortness of breath cough Neurologic denied any new focal deficits All inpatient medications were reviewed and appropriate changes in these medications as dictated in the interval history and assessment and plan. Objective - Vital Signs Vital signs: Vital Signs Temp 99.1 F 10/21/20 10:05 Pulse 90 10/21/20 10:05 Resp 18 10/21/20 10:05 BP 112/78 10/21/20 10:05 Pulse Ox 96 10/21/20 10:05 Intake & Output 10/20/20 10/21/20 10/21/20 18:59 06:59 18:59 Intake Total 1190 Output Total 950 Balance 240 Intake: Intake, IV Titration 150 Amount Ampicillin-Sulbactam 3 gm 100 In Sodium Chloride 0.9% 100 ml @ 200 mls/hr IVPB Q8H [facility] Rx#:[id number] ceFAZolin 2 gm In Sodium 50 Chloride 0.9% 50 ml @ 100 mls/hr IVPB Q8HR [facility] Rx# :[id number] Oral 1040 Output: Urine 950 Other: Voiding Method Toilet Toilet Toilet # Voids 2 - Exam PHYSICAL EXAMINATION: GENERAL: The patient is alert and oriented x3, not in any acute distress. Well developed, well nourished. HEENT: Pupils are round and equally reacting to light. EOMI. No scleral icterus. No conjunctival pallor. Normocephalic, atraumatic. No pharyngeal erythema. No thyromegaly. CARDIOVASCULAR: S1 and S2 present. No murmurs, rubs, or gallops. PULMONARY: Chest is clear to auscultation, no wheezing or crackles. ABDOMEN: Soft, nontender, nondistended, normoactive bowel sounds. No palpable organomegaly. MUSCULOSKELETAL: She has significant swelling in the right the calf tender to touch without any significant redness of skin. EXTREMITIES: No cyanosis, clubbing, or pedal edema. NEUROLOGICAL: Gross neurological examination did not reveal any focal deficits. SKIN: Mild redness secondary to myositis, his fungal infection between fourth and fifth toes on the right side - Labs CBC & Chem 7: 10/19/20 09:44 10/19/20 09:44 Labs: Microbiology - Last 24 Hours (Table) 10/19/20 21:42 Blood Culture - Preliminary Blood No Growth after 24 hours Assessment and Plan Plan: -Severe myositis: Patient is presently on ceftezolin and clindamycin ,patient probably has a streptococcal infection. Patient has Candidal toe webs for this infection. Patient's CK is only minimally elevated yesterday. -Covid 19 PCR positivity: Secondary to his recent Covid 19 infection patient doesn't appear to have active infection at this time. -Hypothyroidism, history of Graves' disease continue with levothyroxine. Paige ent had history of radiation for Graves' disease. TSH is within normal limits -DVT prophylaxis Lovenox
[2020-10-21] MEDS: NYSTATIN 100,000UNIT/GM CREAM 30 GM TUBE TOPICAL SCH ×2 (11:46→23:54)
[2020-10-21 12:26] LABS: HCT 38.6 % (39.6-50.0); HGB 12.3 g/dL (13.0-17.0); MCH 29.9 pg (27.0-32.0); MCHC 31.9 g/dL (32.0-37.0); MCV 93.7 fL (80.0-97.0); Mean Platelet Volume 10.2 fL (9.5-12.2); Platelet Count 198 X 10*3/uL (140-440); RBC 4.12 X 10*6/uL (4.40-5.60); RDW 11.9 % (11.5-14.5); WBC 12.49 X 10*3/uL (4.50-10.00)
[2020-10-21 12:47] LABS: African American GFR (CKD) 130.4 (60.0-200.0); Anion Gap 8.5 mmol/L (4.00-12.00); BUN/Creat Ratio 17.5 Ratio (12.00-20.00); Calcium 7.8 mg/dL (8.7-10.3); Carbon Dioxide 25.5 mmol/L (21.6-31.8); Non-African American GFR(CKD) 112.5 (60.0-200.0); Potassium 4.5 mmol/L (3.5-5.5)
--- NOTE | 2020-10-21 19:30 | PN ---
PROGRESS NOTE DATE OF SERVICE: 10/21/2020 REASON FOR FOLLOWUP: Right lower extremity cellulitis and athlete's foot. INTERVAL HISTORY: Patient overall fever pattern has improved. Did have a ow grade fever of 100.2 this morning. The patient denies having any chest pain. No shortness of breath or cough. No abdominal pain. Overall pain and discomfort to the right leg has slightly decreased intensity. PHYSICAL EXAMINATION: Blood pressure 106/70 with a pulse of 83, temperature 9.2. He is 97% on room air. General description: The patient is a middle-aged male lying in bed in no distress. Respiratory system: Unlabored breathing, clear to auscultation anteriorly. Heart S1, S2. Regular rate and rhythm. Abdomen: Soft, no tenderness. The right leg swelling and redness has slightly decreased. No worsening from the line that was placed yesterday. CT was negative for any abscess. DIAGNOSTIC IMPRESSION AND PLAN: 1. Patient with acute right lower extremity cellulitis, source likely the athlete's foot. Clinically responding to cefazolin to continue for 24 hours. 2. Patient with positive Covid test in this patient who did have a history of Covid 2 months ago, more likely residual from his previous infection. Clinically not behaving as an active Covid, no need for further treatment or isolation. MMODL / IJN: [id number] /
[2020-10-22] MEDS: CLINDAMYCIN 900 MG in DEXTROSE 5% IN WATER 50 ML IVPB SCH ×8 (01:11→23:49)
[2020-10-22] MEDS: ACETAMINOPHEN TAB 325 MG TAB PO PRN (06:31)
[2020-10-22] MEDS: LEVOTHYROXINE 50 MCG TAB PO SCH (06:32)
--- NOTE | 2020-10-22 08:05 | P.PN ---
Subjective Principal diagnosis: The patient essentially admitted for right Cellulitis The patient states he is unable to completely bear weight. However fever is broken no voiding difficulties. Objective - Vital Signs Vital signs: Vital Signs Temp 98.6 F 10/22/20 07:12 Pulse 85 10/22/20 07:12 Resp 17 10/22/20 07:12 BP 136/77 10/22/20 07:12 Pulse Ox 98 10/22/20 07:12 Intake & Output 10/21/20 10/22/20 10/22/20 18:59 06:59 18:59 Intake Total 730 Balance 730 Intake: Intake, IV Titration 150 Amount Clindamycin 900 mg In 50 Dextrose 5% in Water 50 ml @ 50 mls/hr IVPB Q8HR [facility] Rx#:[id number] ceFAZolin 2 gm In Sodium 100 Chloride 0.9% 50 ml @ 100 mls/hr IVPB Q8HR [facility] Rx# :[id number] Oral 580 Other: Voiding Method Toilet Toilet # Voids 2 - Constitutional General appearance: Present: average body habitus - EENT Eyes: Absent: abnormal pupil - Neck Neck: Absent: lymphadenopathy - Respiratory Respiratory: bilateral: CTA - Cardiovascular Rhythm: regular Heart sounds: normal: S1, S2 Abnormal Heart Sounds: Absent: S3 Gallop - Gastrointestinal General gastrointestinal: Present: soft. Absent: tenderness - Integumentary Integumentary Comment(s): Significant right calf cellulitis with edema Integumentary: Present: cellulitis - Neurologic Neurologic: Present: CNII-XII intact - Labs CBC & Chem 7: 10/21/20 06:17 10/21/20 06:17 Labs: Abnormal Lab Results - Last 24 Hours (Table) 10/21/20 10/21/20 Range/Units 06:17 06:17 WBC 12.49 H (4.50-10.00) X 10*3/uL RBC 4.12 L (4.40-5.60) X 10*6/uL Hgb 12.3 L (13.0-17.0) g/dL Hct 38.6 L (39.6-50.0) % MCHC 31.9 L (32.0-37.0) g/dL Calcium 7.8 L (8.7-10.3) mg/dL Microbiology - Last 24 Hours (Table) 10/19/20 21:42 Blood Culture - Preliminary Blood No Growth after 48 hours Assessment and Plan (1) Fever Current Visit: Yes Status: Acute Code(s): R50.9 - FEVER, UNSPECIFIED SNOMED Code(s): 265686619 (2) Myositis Current Visit: Yes Status: Acute Code(s): M60.9 - MYOSITIS, UNSPECIFIED SNOMED Code(s): 15481961 (3) Right leg pain Current Visit: Yes Status: Acute Code(s): M79.604 - PAIN IN RIGHT LEG SNOMED Code(s): 042540635 Plan: Continue current regimen of antibiotic treatment. Check CBC in a.m.
[2020-10-22] MEDS: ENOXAPARIN 40 MG/0.4 ML SYRINGE SQ SCH (08:47)
[2020-10-22] MEDS: NYSTATIN 100,000UNIT/GM CREAM 30 GM TUBE TOPICAL SCH ×2 (08:48→21:17)
[2020-10-22 09:46] LABS: Basophils % (A) 0 %; Eosinophils # (A) 0.1 k/uL (0-0.7); Eosinophils % (A) 1 %; HCT 39.2 % (39.0-53.0); HGB 12.7 gm/dL (13.0-17.5); Lymphocytes # (A) 1.9 k/uL (1.0-4.8); Lymphocytes % (A) 20 %; MCH 29.2 pg (25.0-35.0); MCHC 32.3 g/dL (31.0-37.0); MCV 90.4 fL (80.0-100.0); Mean Platelet Volume 7.3; Monocytes # (A) 0.5 k/uL (0-1.0); Monocytes % (A) 5 %; Neutrophils # (A) 6.7 k/uL (1.3-7.7); Neutrophils % (A) 72 %; Platelet Count 253 k/uL (150-450); RBC 4.34 m/uL (4.30-5.90); RDW 12.5 % (11.5-15.5); WBC 9.3 k/uL (3.8-10.6)
[2020-10-22] MEDS: HYDROmorphone 0.5 MG/0.5 ML SYRINGE IVP PRN ×3 (09:46→22:36)
[2020-10-22 10:20] LABS: African American GFR (CKD) >90 (>60 ml/min/1.73 sqM); Anion Gap 7 mmol/L; Blood Urea Nitrogen 12 mg/dL (9-20); Calcium 9.3 mg/dL (8.4-10.2); Carbon Dioxide 30 mmol/L (22-30); Chloride 107 mmol/L (98-107); Glucose 117 mg/dL (74-99); Non-African American GFR(CKD) >90 (>60 ml/min/1.73 sqM); Potassium 3.9 mmol/L (3.5-5.1); Sodium 144 mmol/L (137-145)
[2020-10-22 10:33] LABS: C Reactive Protein 16.8 mg/dL (<1.0)
--- NOTE | 2020-10-22 13:24 | PN ---
PROGRESS NOTE DATE OF SERVICE: 10/22/2020 REASON FOR FOLLOWUP: 1. Right lower extremity cellulitis. 2. Athlete's foot. INTERVAL HISTORY: Patient is afebrile. The patient is breathing comfortably. The patient denies having any chest pain. No shortness, no cough, no abdominal pain. Overall pain and discomfort to the right heel has decreased. Able to walk on it. PHYSICAL EXAMINATION: Blood pressure is 136/77 with a pulse of 85, temperature 98.6. He is 98% on room air. General description: The patient is a middle-aged male lying in bed in no distress. Respiratory system: Unlabored breathing, clear to auscultation anteriorly. Heart S1, S2. Regular rate and rhythm. Abdomen soft, no tenderness. Right leg swelling has slightly decreased. LABS: Hemoglobin is 12.1, white count 9.3, BUN of 12, creatinine 0.68. DIAGNOSTIC IMPRESSION AND PLAN: Patient with acute right lower extremity cellulitis with diffuse swelling and redness likely streptococcal disease, slow clinical response to continue for another 24 to 48 hours, infection before transition to oral antibiotics. Continue supportive care. MMODL / IJN: [id number] /
[2020-10-23] MEDS: LEVOTHYROXINE 50 MCG TAB PO SCH (06:15)
[2020-10-23] MEDS: HYDROmorphone 0.5 MG/0.5 ML SYRINGE IVP PRN ×2 (06:15→20:49)
[2020-10-23] MEDS: ENOXAPARIN 40 MG/0.4 ML SYRINGE SQ SCH (09:07)
[2020-10-23] MEDS: NYSTATIN 100,000UNIT/GM CREAM 30 GM TUBE TOPICAL SCH ×2 (09:08→20:51)
[2020-10-23] MEDS: ACETAMINOPHEN TAB 325 MG TAB PO PRN (09:14)
[2020-10-23] MEDS: CLINDAMYCIN 900 MG in DEXTROSE 5% IN WATER 50 ML IVPB SCH ×4 (10:28→16:43)
[2020-10-23 11:33] LABS: MCHC 32.6 g/dL (32.0-37.0); MCV 92.1 fL (80.0-97.0); Platelet Count 382 X 10*3/uL (140-440); RBC 4.67 X 10*6/uL (4.40-5.60); RDW 11.9 % (11.5-14.5); WBC 9.51 X 10*3/uL (4.50-10.00)
[2020-10-23 13:02] LABS: African American GFR (CKD) 124.3 (60.0-200.0); Albumin 4.3 g/dL (3.80-4.90); Albumin/Globulin Ratio 1.43 (1.60-3.17); Anion Gap 12.4 mmol/L (4.00-12.00); BUN/Creat Ratio 12.22 Ratio (12.00-20.00); Calcium 9.4 mg/dL (8.7-10.3); Carbon Dioxide 24.6 mmol/L (21.6-31.8); Non-African American GFR(CKD) 107.2 (60.0-200.0); Potassium 4.1 mmol/L (3.5-5.5); Total Bilirubin 0.5 mg/dL (0.3-1.2); Total Protein 7.3 g/dL (6.2-8.2)
[2020-10-23] MEDS ORDERED: HYDROcodone/APAP 7.5-325MG 1 EACH TAB PO PRN (20:21)
--- NOTE | 2020-10-23 22:48 | PN ---
PROGRESS NOTE DATE OF SERVICE: 10/23/2020 REASON FOR FOLLOWUP: Right lower extremity cellulitis. INTERVAL HISTORY: Patient is afebrile. The patient is breathing comfortably. The right leg pain and swelling have slightly decreased. Denies having any chest pain, shortness of breath, cough, no abdominal pain or diarrhea. PHYSICAL EXAMINATION: Blood pressure 107/55, pulse of 70, temperature 98.1. He is 96% on room air. General description: The patient is a middle-aged male lying in bed in no distress. Respiratory system: Unlabored breathing, clear to auscultation anteriorly. Heart S1, S2. Regular rate and rhythm. Abdomen: Soft, no tenderness. Right leg swelling and redness has improved. Still has significant amount of inflammation. LABS: Hemoglobin is 14, white count of 9.5. BUN of 11, creatinine 0.9. DIAGNOSTIC IMPRESSION AND PLAN: Patient with acute right lower extremity cellulitis, extensive with underlying significant Athlete's foot. The patient has responded to IV antibiotic. However still has significant amount of infection and concern for possible failure of oral antibiotic therapy. We will see if the patient has coverage for outpatient antibiotic. Continue with cefazolin and clindamycin at this point and reevaluate the patient tomorrow. MMODL / IJN: [id number] /
[2020-10-24] MEDS: CLINDAMYCIN 900 MG in DEXTROSE 5% IN WATER 50 ML IVPB SCH ×4 (00:07→09:20)
[2020-10-24] MEDS: LEVOTHYROXINE 50 MCG TAB PO SCH (05:51)
[2020-10-24 07:53] VITALS: RESP 17
[2020-10-24] MEDS: ENOXAPARIN 40 MG/0.4 ML SYRINGE SQ SCH (07:56)
--- NOTE | 2020-10-24 08:24 | P.PN ---
Subjective Principal diagnosis: The patient essentially admitted for right Cellulitis The patient states he is unable to completely bear weight. However fever is broken no voiding difficulties. Objective - Vital Signs Vital signs: Vital Signs Temp 98.1 F 10/24/20 07:22 Pulse 80 10/24/20 07:22 Resp 17 10/24/20 07:22 BP 126/82 10/24/20 07:22 Pulse Ox 98 10/24/20 07:22 Intake & Output 10/23/20 10/24/20 10/24/20 18:59 06:59 18:59 Other: Voiding Method Toilet Toilet # Voids 3 1 # Bowel Movements 0 - Constitutional General appearance: Present: average body habitus - EENT Eyes: Absent: abnormal pupil - Neck Neck: Absent: lymphadenopathy - Respiratory Respiratory: bilateral: CTA - Cardiovascular Rhythm: regular Heart sounds: normal: S1, S2 Abnormal Heart Sounds: Absent: S3 Gallop - Gastrointestinal General gastrointestinal: Present: soft. Absent: tenderness - Integumentary Integumentary: Present: cellulitis - Psychiatric Psychiatric: Present: A&O x's 3, appropriate affect - Labs CBC & Chem 7: 10/23/20 07:00 10/23/20 07:00 Labs: Abnormal Lab Results - Last 24 Hours (Table) 10/23/20 Range/Units 07:00 Anion Gap 12.40 H (4.00-12.00) mmol/L Albumin/Globulin Ratio 1.43 L (1.60-3.17) g/dL Microbiology - Last 24 Hours (Table) 10/19/20 21:42 Blood Culture - Preliminary Blood No Growth after 96 hours Assessment and Plan (1) Fever Current Visit: Yes Status: Acute Code(s): R50.9 - FEVER, UNSPECIFIED SNOMED Code(s): 219083583 (2) Myositis Current Visit: Yes Status: Acute Code(s): M60.9 - MYOSITIS, UNSPECIFIED SNOMED Code(s): 34331570 (3) Right leg pain Current Visit: Yes Status: Acute Code(s): M79.604 - PAIN IN RIGHT LEG SNOMED Code(s): 708835798 Plan: Continue current regimen of antibiotic treatment. Check CBC in a.m. Anticipate discharge in the next 24-40 Time with Patient: Less than 30
--- NOTE | 2020-10-24 08:27 | P.DS ---
Providers Date of admission: 10/19/20 12:52 Attending physician: Lobo Dumont Consults: 10/19/20 12:55 Consult Physician Urgent Consulting Provider: Alex Arellano Consult Reason/Comments: leg pain Do you want consulting provider notified?: Yes 10/20/20 10:20 Consult Physician Routine Consulting Provider: Sly Garcia Consult Reason/Comments: Cellutis Do you want consulting provider notified?: Yes Primary care physician: Lobo Dumont - Discharge Diagnosis(es) (1) Fever Current Visit: Yes Status: Acute (2) Myositis Current Visit: Yes Status: Acute (3) Right leg pain Current Visit: Yes Status: Acute Hospital Course: This is a discharge summary 40-year-old white male essentially admitted for right calf tenderness and mass. The patient was treated and found to have signi ficant cellulitis. Orthopedic surgery was consulted for possible fasciitis and he was started on empiric antibiotic treatment. After infectious diseases consulted, the patient was placed on appropriate IV antibiotic and responded appropriately. He will be discharged once the antibiotic protocol is elucidated Geeta oral versus IV. The patient has responded significantly and other than difficulty ambulating, the patient is afebrile the last 48 hours only discharged once cleared by consultants. Patient Condition at Discharge: Stable Plan - Discharge Summary Discharge Rx Participant: Yes New Discharge Prescriptions: New Nystatin 100,000Unit/gm Cream [Mycostatin Cream] 1 applic TOPICAL BID #60 gram Continue Hydrocodone/Acetaminophen [[place] 7.5-325] 1 tab PO QID PRN PRN Reason: Pain Levothyroxine Sodium [Synthroid] 50 mcg PO DAILY Discharge Medication List Hydrocodone/Acetaminophen [[place] 7.5-325] 1 tab PO QID PRN 07/28/20 [History] Levothyroxine Sodium [Synthroid] 50 mcg PO DAILY 10/19/20 [History] Nystatin 100,000Unit/gm Cream [Mycostatin Cream] 1 applic TOPICAL BID #60 gram 10/24/20 [Rx] Follow up Appointment(s)/Referral(s): Lobo Dumont MD [Primary Care Provider] - 3 Days Discharge Disposition: HOME SELF-CARE
[2020-10-24] MEDS: NYSTATIN 100,000UNIT/GM CREAM 30 GM TUBE TOPICAL SCH (09:22)
--- NOTE | 2020-10-24 13:21 | PN ---
PROGRESS NOTE DATE OF SERVICE: 10/24/2020 REASON FOR FOLLOWUP: Right lower extremity cellulitis. INTERVAL HISTORY: Patient is currently afebrile. The patient is feeling better. Breathing comfortably. Denies having any chest pain, shortness of breath, abdominal pain. Overall pain on the right leg has decreased. PHYSICAL EXAMINATION: VITAL SIGNS: Blood pressure 126/82, pulse of 80, temperature 98.1, he is 98% on room air. GENERAL DESCRIPTION: A middle-aged male lying in bed in no distress. RESPIRATORY SYSTEM: Unlabored breathing, clear to auscultation anteriorly. HEART: S1, S2. Regular rate and rhythm. ABDOMEN: Soft, no tenderness. EXTREMITIES: Right leg swelling and redness has improved. LABS: No new labs have been obtained today. Blood culture has been negative. DIAGNOSTIC IMPRESSION AND PLAN: Patient with right lower extremity cellulitis, extensive. Patient has shown overall improvement on clindamycin and cefazolin. He would have benefit from another day of IV antibiotic, however, the patient has been discharged by the admitting physician. Prescription for Keflex to be sent to the pharmacy and advise close outpatient followup. MMODL / IJN: [id number] /
[2020-10-24 14:38] VITALS: BP 127/89; PULSE 89; TEMP 98.2
== END 2020-10-24 15:36 | disposition home or self-care (01) | DRG 602 ==
LOC: EC 08:51 → 4SSUR 12:52
PROVIDERS: ADMIT Family Medicine; ATTEND Family Medicine
DX: L03.115 Cellulitis of right lower limb (principal); U07.1 COVID-19; E03.9 Hypothyroidism, unspecified; E86.0 Dehydration; M60.9 Myositis, unspecified; M19.071 Primary osteoarthritis, right ankle and foot; B37.2 Candidiasis of skin and nail; B35.3 Tinea pedis; Z79.890 Hormone replacement therapy; Z87.891 Personal history of nicotine dependence; E05.00 Thyrotoxicosis with diffuse goiter without thyrotoxic crisis or storm; K44.9 Diaphragmatic hernia without obstruction or gangrene
CPT/HCPCS: 36415; 71046; 80048; 80053; 81003; 82550; 83605; 84443; 85025; 85027; 86140; 87040; 87635; 96374; 99285

== ENCOUNTER → 2021-05-24 | Outpatient (CLI) | payer OTHER | END | disposition home or self-care (01) | LOC: LABWHC1 11:20 | PROVIDERS: ATTEND Family Medicine | DX: U07.1 COVID-19 (principal) | CPT/HCPCS: U0003; C9803; U0005 ==

== ENCOUNTER 2023-03-07 15:17 | Emergency (ER) | payer OTHER ==
[2023-03-07 15:29] VITALS: RESP 20; TEMP 98.5
--- NOTE | 2023-03-07 15:40 | ED ---
Fall HPI - General Chief Complaint: Fall Stated Complaint: Fall Time Seen by Provider: 03/07/23 15:33 Source: patient, RN notes reviewed, old records reviewed Mode of arrival: EMS Limitations: no limitations - History of Present Illness Initial Comments: This is a 42-year-old male presented by EMS for evaluation regarding fall and significant trauma. Patient missed a step and fell from a tree blind today he believes about 15 feet in the ER. Patient complaining of severe back pain severe pelvic pain, patient is able to move legs or extremities but states he is unable to walk is having severe pain in his pelvis area. Patient feels something feels broke. 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 arrival Fall Witnessed: no Place Fall Occurred: home Loss of Consciousness: none Prolonged Down Time?: no Symptoms Prior to Fall: none Location: pelvis, buttocks Severity: severe Severity scale (1-10): 10 Quality: sharp Context: tripped/slipped Associated Symptoms: denies - Related Data Home Medications Medication Instructions Recorded Confirmed Hydrocodone/Acetaminophen [[place] 1 tab PO Q6H PRN 07/28/20 03/07/23 7.5-325] Cyclobenzaprine [Flexeril] 10 mg PO BID PRN 03/07/23 03/07/23 Esomeprazole Magnesium [NexIUM 20 mg PO DAILY PRN 03/07/23 03/07/23 24Hr] Levothyroxine Sodium [Unithroid] 200 mcg PO DAILY 03/07/23 03/07/23 Allergies Allergy/AdvReac Type Severity Reaction Status Date / Time succinylcholine Allergy Anaphylaxis/See Verified 03/07/23 18:25 comment Review of Systems ROS Statement: Those systems with pertinent positive or pertinent negative responses have been documented in the HPI. ROS Other: All systems not noted in ROS Statement are negative. Past Medical History Past Medical History: Thyroid Disorder Additional Past Medical History / Comment(s): slight hiatal hernia, graves disease History of Any Multi-Drug Resistant Organisms: MRSA Date of last positivie culture/infection: 07/2011 MDRO Source:: LEFT KNEE Past Surgical History: Appendectomy, Cholecystectomy, Orthopedic Surgery Additional Past Surgical History / Comment(s): 2 left knee surgery, rt shoulder rotator cuff, nasal surgery Past Anesthesia/Blood Transfusion Reactions: Previous Problems w/ Anesthesia Additional Past Anesthesia/Blood Transfusion Reaction / Comment(s): HAD A REACTION TO SUCCINYCHOLINE POST OP NASAL SX FOR BROKEN NOSE THAT "BODY DID NOT PROCESS IT AND WAS ON BREATHING MACHINE FOR SEVERAL HOURS AFTERWARD" Past Psychological History: No Psychological Hx Reported Smoking Status: Former smoker Past Alcohol Use History: None Reported Past Drug Use History: None Reported - Past Family History Mother Family Medical History: No Reported History General Exam - General Exam Comments Initial Comments: GCS 15 Airways patent trachea is midline Breath sounds equal bilaterally Limitations: no limitations General appearance: alert, in no apparent distress, anxious Head exam: Present: atraumatic, normocephalic, normal inspection Eye exam: Present: normal appearance, PERRL, EOMI. Absent: scleral icterus, conjunctival injection, periorbital swelling ENT exam: Present: normal exam, mucous membranes moist Neck exam: Present: normal inspection. Absent: tenderness, meningismus, lymphadenopathy Respiratory exam: Present: normal lung sounds bilaterally. Absent: respiratory distress, wheezes, rales, rhonchi, stridor Cardiovascular Exam: Present: regular rate, normal rhythm, normal heart sounds. Absent: systolic murmur, diastolic murmur, rubs, gallop, clicks GI/Abdominal exam: Present: soft, tenderness (patient has pelvic tenderness on pressing on his abdomen), normal bowel sounds. Absent: distended, guarding, rebound, rigid Extremities exam: Present: normal inspection, full ROM, normal capillary refill. Absent: tenderness, pedal edema, joint swelling, calf tenderness Back exam: Present: normal inspection Neurological exam: Present: alert, oriented X3, CN II-XII intact Psychiatric exam: Present: normal affect, normal mood Skin exam: Present: warm, dry, intact, normal color. Absent: rash Course Vital Signs 03/07/23 03/07/23 03/07/23 15:21 15:37 19:09 Temperature 98.5 F Pulse Rate 96 96 99 Respiratory 20 20 20 Rate Blood Pressure 143/93 142/95 143/68 O2 Sat by Pulse 99 96 99 Oximetry - Reevaluation(s) Reevaluation #1: 03/07/23 17:53 Medical records reviewed Reevaluation #2: 03/07/23 16:23 Patient updated to level to primary trauma Reevaluation #3: 03/07/23 17:53 Patient family informed of results questions answered Reevaluation #4: 03/07/23 15:56 Was pt. sent in by a medical professional or institution (JOESPH Sorto, [employer], urgent care, hospital, or half-way...) When possible be specific @ -no Did you speak to anyone other than the patient for history (EMS, parent, family, police, friend...)? What history was obtained from this source @ -no Did you review nursing and triage notes (agree or disagree)? Why? @ -agree Are old charts reviewed (outside hosp., previous admission, EMS record, old EKG, old radiological studies, urgent care reports/EKG's, half-way records)? Report findings @ -yes Differential Diagnosis (chest pain, altered mental status, abdominal pain women, abdominal pain men, vaginal bleeding, weakness, fever, dyspnea, syncope, headache, dizziness, GI bleed, back pain, seizure, CVA, palpatations, mental health, musculoskeletal)? @ -prior EKG interpreted by me (3pts min.). @ -yes X-rays interpreted by me (1pt min.). @ -yes CT interpreted by me (1pt min.). @ -yes U/S interpreted by me (1pt. min.). @ -no What testing was considered but not performed or refused? (CT, X-rays, U/S, labs)? Why? @ -none What meds were considered but not given or refused? Why? @ -none Did you discuss the management of the patient with other professionals (professionals i.e. JOESPH Sorto, [employer] OPERATOR [employer], lab, RT, psych nurse, social worker aide, wheel buffer, teacher, disability liaison officer, comp field case manager)? Give summary @ -no Was smoking cessation discussed for >3mins.? @ -no Was critical care preformed (if so, how long)? @ -no Were there social determinants of health that impacted care today? How? (Homelessness, low income, unemployed, alcoholism, drug addiction, transportation, low edu. Level, literacy, decrease access to med. care, residential, rehab)? @ -none Was there de-escalation of care discussed even if they declined (Discuss DNR or withdrawal of care, Hospice)? DNR status @ -no What co-morbidities impacted this encounter? (DM, HTN, Smoking, COPD, CAD, Cancer, CVA, ARF, Chemo, Hep., AIDS, mental health diagnosis, sleep apnea, morbid obesity)? @ -none Was patient admitted / discharged? Hospital course, mention meds given and route, prescriptions, significant lab abnormalities, going to OR and other pertinent info. @ - 42-year-old male to the emergency department for evaluation of fall from significant height. Patient had a significant history of a fall from around 15/17 feet. Patient did land on his back and is unable to ambulate secondary to severe pain. Patient does have a displaced sacral fracture [facility] for orthopedic trauma evaluation Transferred to [facility] Admitted Undiagnosed new problem with uncertain prognosis? @ -no Drug Therapy requiring intensive monitoring for toxicity (Heparin, Nitro, Insulin, Cardizem)? @ -no Were any procedures done? @ -no Diagnosis/symptom? @ -Fall, sacral fracture displaced Acute, or Chronic, or Acute on Chronic? @ -Acute Uncomplicated (without systemic symptoms) or Complicated (systemic symptoms)? @ -Complicated Side effects of treatment? @ -no Exacerbation, Progression, or Severe Exacerbation? @ -exacerbation Poses a threat to life or bodily function? How? (Chest pain, USA, MS, pneumonia, PE, COPD, DKA, ARF, appy, cholecystitis, CVA, Diverticulitis, Homicidal, Suicidal, threat to staff... and all critical care pts) @ -yes significant traumatic fall - Consultations Consultation #1: Spoke with trauma surgery , orthopedic trauma, Dr. Jeff who recommends transfer, spoke with at [facility] who does accept patient for transfer Medical Decision Making - Medical Decision Making 42-year-old male to the emergency department for evaluation of fall from significant height. Patient had a significant history of a fall from around 15/17 feet. Patient did land on his back and is unable to ambulate secondary to severe pain. Patient does have a displaced sacral fracture [facility] for orthopedic trauma evaluation - Lab Data Result diagrams: 03/07/23 15:37 03/07/23 15:37 Lab Results 03/07/23 03/07/23 03/07/23 Range/Units 15:37 15:37 15:37 WBC 14.9 H (3.8-10.6) k/uL RBC 4.67 (4.30-5.90) m/uL Hgb 14.2 (13.0-17.5) gm/dL Hct 41.0 (39.0-53.0) % MCV 87.8 (80.0-100.0) fL MCH 30.4 (25.0-35.0) pg MCHC 34.6 (31.0-37.0) g/dL RDW 12.0 (11.5-15.5) % Plt Count 298 (150-450) k/uL MPV 7.2 Neutrophils % 77 % Lymphocytes % 18 % Monocytes % 4 % Eosinophils % 1 % Basophils % 0 % Neutrophils # 11.4 H (1.3-7.7) k/uL Lymphocytes # 2.7 (1.0-4.8) k/uL Monocytes # 0.6 (0-1.0) k/uL Eosinophils # 0.1 (0-0.7) k/uL Basophils # 0.0 (0-0.2) k/uL PT 11.5 (10.0-12.5) sec INR 1.1 (<1.2) APTT 23.1 (22.0-30.0) sec Sodium 138 (137-145) mmol/L Potassium 3.6 (3.5-5.1) mmol/L Chloride 103 (98-107) mmol/L Carbon Dioxide 23 (22-30) mmol/L Anion Gap 12 mmol/L BUN 14 (9-20) mg/dL Creatinine 0.87 (0.66-1.25) mg/dL Est GFR (CKD-EPI)AfAm >90 (>60 ml/min/1.73 sqM) Est GFR (CKD-EPI)NonAf >90 (>60 ml/min/1.73 sqM) Glucose 116 H (74-99) mg/dL Calcium 9.0 (8.4-10.2) mg/dL Phosphorus (2.5-4.5) mg/dL Magnesium (1.6-2.3) mg/dL Total Bilirubin 0.7 (0.2-1.3) mg/dL AST 45 (17-59) U/L ALT 51 H (4-49) U/L Alkaline Phosphatase 72 (38-126) U/L Total Protein 7.4 (6.3-8.2) g/dL Albumin 4.2 (3.5-5.0) g/dL Urine Color Urine Appearance (Clear) Urine pH (5.0-8.0) Ur Specific [place] (1.001-1.035) Urine Protein (Negative) Urine Glucose (UA) (Negative) Urine Ketones (Negative) Urine Blood (Negative) Urine Nitrite (Negative) Urine Bilirubin (Negative) Urine Urobilinogen (<2.0) mg/dL Ur Leukocyte Esterase (Negative) Urine Opiates Screen (NotDetected) Ur Oxycodone Screen (NotDetected) Urine Methadone Screen (NotDetected) Ur Propoxyphene Screen (NotDetected) Ur Barbiturates Screen (NotDetected) U Tricyclic Antidepress (NotDetected) Ur Phencyclidine Scrn (NotDetected) Ur Amphetamines Screen (NotDetected) U Methamphetamines Scrn (NotDetected) U Benzodiazepines Scrn (NotDetected) Urine Cocaine Screen (NotDetected) U Marijuana (THC) Screen (NotDetected) Serum Alcohol mg/dL Blood Type Blood Type Recheck Bld Type Recheck Status Antibody Screen Spec Expiration Date 03/07/23 03/07/23 03/07/23 Range/Units 15:52 15:55 17:29 WBC (3.8-10.6) k/uL RBC (4.30-5.90) m/uL Hgb (13.0-17.5) gm/dL Hct (39.0-53.0) % MCV (80.0-100.0) fL MCH (25.0-35.0) pg MCHC (31.0-37.0) g/dL RDW (11.5-15.5) % Plt Count (150-450) k/uL MPV Neutrophils % % Lymphocytes % % Monocytes % % Eosinophils % % Basophils % % Neutrophils # (1.3-7.7) k/uL Lymphocytes # (1.0-4.8) k/uL Monocytes # (0-1.0) k/uL Eosinophils # (0-0.7) k/uL Basophils # (0-0.2) k/uL PT (10.0-12.5) sec INR (<1.2) APTT (22.0-30.0) sec Sodium (137-145) mmol/L Potassium (3.5-5.1) mmol/L Chloride (98-107) mmol/L Carbon Dioxide (22-30) mmol/L Anion Gap mmol/L BUN (9-20) mg/dL Creatinine (0.66-1.25) mg/dL Est GFR (CKD-EPI)AfAm (>60 ml/min/1.73 sqM) Est GFR (CKD-EPI)NonAf (>60 ml/min/1.73 sqM) Glucose (74-99) mg/dL Calcium (8.4-10.2) mg/dL Phosphorus 2.0 L (2.5-4.5) mg/dL Magnesium 1.7 (1.6-2.3) mg/dL Total Bilirubin (0.2-1.3) mg/dL AST (17-59) U/L ALT (4-49) U/L Alkaline Phosphatase (38-126) U/L Total Protein (6.3-8.2) g/dL Albumin (3.5-5.0) g/dL Urine Color Colorless Urine Appearance Clear (Clear) Urine pH 6.5 (5.0-8.0) Ur Specific [place] 1.041 H (1.001-1.035) Urine Protein Negative (Negative) Urine Glucose (UA) Negative (Negative) Urine Ketones 1+ H (Negative) Urine Blood Negative (Negative) Urine Nitrite Negative (Negative) Urine Bilirubin Negative (Negative) Urine Urobilinogen <2.0 (<2.0) mg/dL Ur Leukocyte Esterase Negative (Negative) Urine Opiates Screen Detected H (NotDetected) Ur Oxycodone Screen Not Detected (NotDetected) Urine Methadone Screen Not Detected (NotDetected) Ur Propoxyphene Screen Not Detected (NotDetected) Ur Barbiturates Screen Not Detected (NotDetected) U Tricyclic Antidepress Not Detected (NotDetected) Ur Phencyclidine Scrn Not Detected (NotDetected) Ur Amphetamines Screen Not Detected (NotDetected) U Methamphetamines Scrn Not Detected (NotDetected) U Benzodiazepines Scrn Not Detected (NotDetected) Urine Cocaine Screen Not Detected (NotDetected) U Marijuana (THC) Screen Not Detected (NotDetected) Serum Alcohol <10 mg/dL Blood Type O Negative Blood Type Recheck O Neg Bld Type Recheck Status No Antibody Screen NEGATIVE Spec Expiration Date 03/10/20232 - EKG Data -: EKG Interpreted by Me (EKG is sinus a 9 DC 132 QRS 94 QTC 419) - Radiology Data Radiology results: report reviewed (CT brain C-spine chest and pelvis and x-rays are positive for traumatic injury, positive sacral fracture), image reviewed Disposition Clinical Impression: Fall, Sacral fracture Disposition: OTHER INSTITUTION NOT DEFINED Condition: Serious Is patient prescribed a controlled substance at d/c from ED?: No Referrals: Lobo Dumont MD [Primary Care Provider] - 1-2 days Time of Disposition: 17:50 - Out of Hospital Transfer - Req. Specs Out of Hospital Transfer - Requested Specifics: Other Emergency Center ([facility])
[2023-03-07 15:46] LABS: Basophils % (A) 0 %; Eosinophils # (A) 0.1 k/uL (0-0.7); Eosinophils % (A) 1 %; HGB 14.2 gm/dL (13.0-17.5); Lymphocytes # (A) 2.7 k/uL (1.0-4.8); Lymphocytes % (A) 18 %; MCH 30.4 pg (25.0-35.0); MCHC 34.6 g/dL (31.0-37.0); MCV 87.8 fL (80.0-100.0); Mean Platelet Volume 7.2; Monocytes # (A) 0.6 k/uL (0-1.0); Monocytes % (A) 4 %; Neutrophils # (A) 11.4 k/uL (1.3-7.7); Neutrophils % (A) 77 %; Platelet Count 298 k/uL (150-450); RBC 4.67 m/uL (4.30-5.90); WBC 14.9 k/uL (3.8-10.6)
[2023-03-07] MEDS ORDERED: SODIUM CHLORIDE 0.9% 500 ML 500 ML IV STA (15:51)
[2023-03-07] MEDS ORDERED: HYDROmorphone 1 MG/ML 1 ML SYRINGE IVP STA (15:51)
[2023-03-07 15:59] LABS: ALT 51 U/L (4-49); AST 45 U/L (17-59); African American GFR (CKD) >90 (>60 ml/min/1.73 sqM); Albumin 4.2 g/dL (3.5-5.0); Alkaline Phosphatase 72 U/L (38-126); Anion Gap 12 mmol/L; Blood Urea Nitrogen 14 mg/dL (9-20); Carbon Dioxide 23 mmol/L (22-30); Chloride 103 mmol/L (98-107); Glucose 116 mg/dL (74-99); Non-African American GFR(CKD) >90 (>60 ml/min/1.73 sqM); Potassium 3.6 mmol/L (3.5-5.1); Sodium 138 mmol/L (137-145); Total Bilirubin 0.7 mg/dL (0.2-1.3); Total Protein 7.4 g/dL (6.3-8.2)
[2023-03-07 16:01] LABS: INR 1.1 (<1.2); Partial Thromboplastin Time 23.1 sec (22.0-30.0); Prothrombin Time 11.5 sec (10.0-12.5)
--- NOTE | 2023-03-07 16:41 | CT ---
EXAMINATION TYPE: CT brain cspine wo con DATE OF EXAM: 03/07/2023 COMPARISON: 12/05/2019 HISTORY: trauma/fall CT DLP: 1604 mGycm Automated exposure control for dose reduction was used. TECHNIQUE: CT scan of the head and cervical spine are performed without contrast. FINDINGS: There is no acute intracranial hemorrhage, mass effect, or midline shift identified. The ventricles and sulci are within normal limits in size. The globes are intact and the visualized sin uses are clear. Cervical spine is visualized in its entirety from C1 through upper thoracic levels and demonstrates s atisfactory alignment without evidence of acute fracture or dislocation. Prevertebral soft tissue ap pears within normal limits. The C1-C2 articulation is unremarkable. IMPRESSION: 1. There is no acute fracture or dislocation evident in the cervical spine. 2. No acute intracranial hemorrhage, mass effect, or midline shift is seen.
--- NOTE | 2023-03-07 16:48 | CT ---
EXAMINATION TYPE: CT ChestAbdPelvis w con DATE OF EXAM: 03/07/2023 COMPARISON: None HISTORY: fall CT DLP: 3687.1 mGycm Automated exposure control for dose reduction was used. CONTRAST: CT scan of the chest, abdomen and pelvis is performed without Oral Contrast and with IV Contrast, pat ient injected with 100 mL of Isovue 300. FINDINGS: CT chest: The lungs are clear of consolidative, interstitial or masslike density. There is no pleural effusion, pleural thickening or pneumothorax. The great vessels chest are normal and there is no mediastinal, hilar or axillary adenopathy. The osseous structures are intact. CT abdomen and pelvis: There are surgical absence of the gallbladder. There is no focal mass or organomegaly involving the liver, pancreas, spleen or adrenal glands. No solid renal mass or hydronephrosis. The caliber the abdominal aorta is normal. The bowel loops are normal in caliber is no dilatation or obstruction. There is no free intraperitoneal air. There is a comminuted displaced fracture through the right sacral alar adjacent soft tissue swelling. There is mild soft tissue density in the right pelvic soft tissues secondary to the fracture. The ri ght piriformis muscle is markedly enlarged likely secondary to intramuscular swelling/hematoma. IMPRESSION: 1. No evidence of chest trauma. 2. No evidence of trauma within the abdomen. 3 fracture of the right sacrum as described above.
--- NOTE | 2023-03-07 16:49 | XR ---
EXAMINATION TYPE: XR chest 1V DATE OF EXAM: 03/07/2023 COMPARISON: 07/28/2020 HISTORY: Fall from 15 feet TECHNIQUE: Single frontal view of the chest is obtained. FINDINGS: The lungs are clear. There is no pleural effusion or pneumothorax. The heart is mildly prominent but the vasculature is not congested. The osseous structures are intact IMPRESSION: Mild cardiomegaly with no other significant traumatic seen. There is no evidence of acut e trauma.
--- NOTE | 2023-03-07 16:51 | XR ---
Right ankle. HISTORY: Trauma COMPARISON: None. TECHNIQUE: 3 views the right ankle were obtained. FINDINGS: There is no fracture, dislocation, intraosseous or intra-articular abnormality. IMPRESSION: No evidence of acute trauma.
[2023-03-07 16:57] LABS: Alcohol <10 mg/dL; Magnesium 1.7 mg/dL (1.6-2.3)
[2023-03-07 17:42] LABS: Appearance,Urine Clear (Clear); Bilirubin,Urine Negative (Negative); Blood,Urine Negative (Negative); Color,Urine Colorless; Glucose,Urine (UA) Negative (Negative); Ketones,Urine 1+ (Negative); Leukocyte Esterase,Urine Negative (Negative); Nitrite,Urine Negative (Negative); PH, Urine 6.5 (5.0-8.0); Protein,Urine Negative (Negative); Specific Gravity,Urine 1.041 (1.001-1.035); Urobilinogen,Urine <2.0 mg/dL (<2.0)
[2023-03-07 18:08] LABS: Amphetamine Screen,Urine Not Detected (NotDetected); Barbiturate Screen,Urine Not Detected (NotDetected); Benzodiazepines Screen,Urine Not Detected (NotDetected); Cocaine Screen,Urine Not Detected (NotDetected); Methadone Screen, Urine Not Detected (NotDetected); Opiate Screen,Urine Detected (NotDetected); Oxycodone Screen, Urine Not Detected (NotDetected); Phencyclidine Screen,Urine Not Detected (NotDetected); Tricyclic Antidepressant,Urine Not Detected (NotDetected); Urn Cannabinoid Scrn Not Detected (NotDetected)
[2023-03-07 19:24] VITALS: BP 143/68; PULSE 99
== END 2023-03-07 19:00 | disposition other institution (70) ==
LOC: EC 15:17
DX: S32.10XA Unspecified fracture of sacrum, initial encounter for closed fracture (principal); E07.9 Disorder of thyroid, unspecified; Z79.890 Hormone replacement therapy; Z88.4 Allergy status to anesthetic agent; Z87.891 Personal history of nicotine dependence; Z90.49 Acquired absence of other specified parts of digestive tract; W14.XXXA Fall from tree, initial encounter; Y92.019 Unspecified place in single-family (private) house as the place of occurrence of the external cause
CPT/HCPCS: 99285; 96374; 36415; 86900; 86901; 80053; 83735; 84100; 85025; 85610; 85730; 86850; 81003; 80306; 80320; 73610; 71045; 72125; 70450; 71260; 74177; J1170; Q9967

== ENCOUNTER → 2024-01-08 | Outpatient (CLI) | payer OTHER ==
--- NOTE | 2024-01-26 12:46 | CT ---
Report Patient: Jasvir Rodriguez Ordering Physician: Unknown, Unknown ID: [id number] Phone, Pager: Phone: N/A Pager: N/A : [phone] Age/Gender: 43Y, M Primary Location: N/A Procedure: CT PELVIS W/O CONTRAST Study Date: 01/08/2024 4:31:00 PM EXAMINATION TYPE: CT pelvis wo con DATE OF EXAM: 01/08/2024 COMPARISON: 03/07/2023 HISTORY: 43-year-old male follow-up bone growth, prior at [place] TECHNIQUE: Contiguous axial scanning of the pelvis without IV contrast. Coronal and sagittal reconstr uctions performed. CT DLP: 591.8 mGycm Automated exposure control for dose reduction was used. FINDINGS: Interval plate and screw fixation across the pubic symphysis. There is [id number] degenerative change at both hips. There is a chronic ununited vertical frac ture through the right August 26 with 2 screw fixation. Mild degenerative disc disease in the lower lumbar spine. Facet arthropathy with trace grade 1 retrol isthesis L4-L5. Mild circumferential bladder wall thickening probably chronic patient. Prostate gland estimated to me asure 3.8 cm wide. Suspect some scarring of the soft tissues anterior to the pubic symphysis. Slightl y patulous right internal canal is unchanged. No abnormal fluid collection in the pelvis or pelvic ly mphadenopathy. IMPRESSION: 1. 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 2. UNCOMPLICATED PLATE AND SCREW FIXATION ACROSS THE PUBIC SYMPHYSIS. 3. 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 4. THE OUTSIDE PRIOR AT [place] INDICATED BY THE GARDENING SUPERVISOR IS NOT AVAILABLE FOR REVIEW.
== END | disposition home or self-care (01) ==
LOC: RADCTMAIN 16:06
PROVIDERS: ATTEND Orthopaedic Surgery
DX: S32.12 Zone II fracture of sacrum (principal); M16.0 Bilateral primary osteoarthritis of hip; M47.816 Spondylosis without myelopathy or radiculopathy, lumbar region; M51.36 Other intervertebral disc degeneration, lumbar region; M54.31 Sciatica, right side
CPT/HCPCS: 72192